=== PATIENT | male | born 1950 | race Caucasian/White ===

== ENCOUNTER 2020-07-19 09:52 | Day surgery (SDC) | payer MEDICARE, SELFPAY ==
--- NOTE | 2020-07-18 09:33 | P.CONAN_ITS ---
Documented by User: Racquel Love 07/18/20 09:33 HPI - Anesthesia Eval Consult details Narrative: 70yo M for Colonoscopy [facility] Past Medical History Medical History BPH (benign prostatic hyperplasia) HTN (hypertension) Surgical History Surgical History History of transurethral resection of prostate Hx of hernia repair Social History Social History Patient Tobacco Use Status: Never used Tobacco Use of substances other than those prescribed or required for medical reasons: No Have you been hit, kicked, punched, or otherwise hurt by someone within the past year? If so, by whom?: No Are you DNR?: No Advance Directives: No Advance Directives Information Provided: No Advance Directives on File: No Meds Allergies Allergy/AdvReac Type Severity Reaction Status Date / Time No Known Allergies Allergy Verified 07/14/20 10:46 Home Medications Medication Instructions Recorded Confirmed Last Taken Type acetaminophen [Tylenol] 650 mg PO Q6H PRN 07/14/20 07/14/20 Unknown History aspirin [Aspir-81] 81 mg PO DAILY 07/14/20 07/14/20 07/09/20 History omega-3 fatty acids [Fish Oil] 1,000 mg PO DAILY 07/14/20 07/14/20 07/09/20 History Exam Exam Date and Time: July 18, 2020 0933 Assessment and Plan Assessment Anesthesia Assessment: Chart Reviewed Documented by User: Alexandria Cunningham 07/19/20 11:37 [facility] Past Medical History Medical History BPH (benign prostatic hyperplasia) HTN (hypertension) Surgical History Surgical History History of transurethral resection of prostate Hx of hernia repair Social History Social History (Reviewed 06/08/21 @ 11:35 by Alexandria Bello Patient Tobacco Use Status: Never used Tobacco Use of substances other than those prescribed or required for medical reasons: No Have you been hit, kicked, punched, or otherwise hurt by someone within the past year? If so, by whom?: No Are you DNR?: No Advance Directives: No Advance Directives Information Provided: No Advance Directives on File: No Meds Allergies Allergy/AdvReac Type Severity Reaction Status Date / Time No Known Allergies Allergy Verified 07/14/20 10:46 Home Medications Medication Instructions Recorded Confirmed Last Taken Type acetaminophen [Tylenol] 650 mg PO Q6H PRN 07/14/20 07/14/20 Unknown History aspirin [Aspir-81] 81 mg PO DAILY 07/14/20 07/14/20 07/09/20 History omega-3 fatty acids [Fish Oil] 1,000 mg PO DAILY 07/14/20 07/14/20 07/09/20 History Exam Airway Mallampati Class: II TM Dist: >3cm Neck ROM: Full Loose/Missing/Broken Teeth: No Heart: RRR Lungs: CTA Assessment and Plan Assessment Anesthesia Assessment: Anesthesia Plan Discussed and Chart Reviewed Final Anesthetic Review NPO: Yes ASA Class: II Final Preanesthetic Review: Meds/Allgs Chart Reviewed, Consent Obtained/Reviewed and Anes Risks/Benef Reviewed Patient Risk: Low Anesthetic Plan Anesthetic Plan: MAC: Disposition: Standard PACU
[2020-07-19 07:04] VITALS: BMI 24.8
[2020-07-19 10:03] VITALS: BP 152/83; PULSE 69; RESP 18; TEMP 36.7; O2SAT 98
[2020-07-19] MEDS: Lactated Ringers 1,000 ML 100 ML IVCONT (10:18)
--- NOTE | 2020-07-19 11:21 | MHC.SHP ---
Pre-Procedural Eval Section B Chief Complaint: Fhx of colon poylps Details of Present Illness: see H&P, no changes Relevant Family History (Specify if Yes): Yes Relevant Social History: None Present Medications: see Short Stay Collaborative assessment Medical History: No relevant PMH History of Previous Operations: No relevant previous surgery Allergies: Allergies Allergy/AdvReac Type Severity Reaction Status Date / Time No Known Allergies Allergy Verified 07/14/20 10:46 Review of Systems Sugical H&P ROS: Negative: Constitution, Cardiovascular, Respiratory, Neurological, Psychiatric, Hem-Onc, Allergic/Immunologic, Gastrointestinal, Genitourinary, Musculoskeletal, Integumentary, Endocrine and Eyes/Ears/Nose/Throat Exam Surgical H&P Exam: Normal: HEENT, Normal: Heart, Normal: Lungs, Normal: Extremities, Normal: Abdomen, Normal: Skin and Normal: Neurological Plan Diagnosis/Plan: Unchanged I have reviewed the history and physical and performed a pertinent physical examination on my patient. No changes have occurred unless specified.
[2020-07-19 11:57] VITALS: BP 107/65; PULSE 55; RESP 18; TEMP 36.2; O2SAT 98
--- NOTE | 2020-07-19 11:57 | PM.OP ---
Brief Operative Note Date of Service: 07/19/20 Pre-op diagnosis: screening Post-op diagnosis: same (colon polyps) Procedure: colonoscopy Surgeon: Dwayne Toledo Anesthesia: MAC Was an Director Operations Broadcast used for this Procedure?: No Estimated blood loss (mL): 0 Pathology: other (polyps x3) Condition: stable Disposition: PACU
[2020-07-19 12:20] VITALS: BP 131/74; PULSE 65; RESP 18; TEMP 36.2; O2SAT 98
--- NOTE | 2020-07-19 22:12 | OP_ITS ---
SURGEON: Dwayne Toledo MD INDICATIONS: Family history of colon polyps and colon cancer screening. PREOPERATIVE DIAGNOSIS: POSTOPERATIVE DIAGNOSIS: PROCEDURE PERFORMED: Colonoscopy to the terminal ileum with snare polypectomy. ESTIMATED BLOOD LOSS: COMPLICATIONS: ANESTHESIA: ASSISTANTS: SPECIMENS: MEDICATIONS: Monitored anesthesia care. DESCRIPTION OF PROCEDURE: History and physical performed. The risks and benefits of the procedure were explained to the patient. Informed consent was obtained. The patient was placed in the left lateral decubitus position. A digital rectal exam was performed and was found to be normal. The Olympus pediatric video colonoscope was introduced into the rectum and advanced to the cecum without difficulty. The cecum was identified by transillumination, palpation, and identification of ileocecal valve. Examination was performed. The scope was removed. He tolerated the procedure well and was taken to recovery in stable condition. FINDINGS: The terminal ileum was examined and appeared normal. The visualized colonic mucosa was within normal limits without evidence of masses or ulcers. The quality of the prep was good. Three polyps were identified and removed with a snare. The largest measured 10 mm and was located at 80 cm. This was snared and recovered via suction. Two other less than 10 mm polyps were removed with a snare at 70 cm and at 30 cm. Retroflexed examination did show moderate-sized internal hemorrhoids. IMPRESSION: Colon polyps. RECOMMENDATION: Follow up with biopsy results. MD KRISH Ontiveros/CHELSIE / [id number]
== END 2020-07-19 12:41 | disposition home or self-care (01) ==
PROVIDERS: PCP Internal Medicine; Visit Provider Internal Medicine Gastroenterology
PROC: 0DJD8ZZ Inspection of Lower Intestinal Tract, Via Natural or Artificial Opening Endoscopic (ICD-10-PCS; CPT 45378; principal; 2020-07-19 11:00)
DX: Z12.11 Encounter for screening for malignant neoplasm of colon (principal); D12.6 Benign neoplasm of colon, unspecified; K63.5 Polyp of colon; K64.8 Other hemorrhoids; Z83.71 Family history of colonic polyps; Z79.82 Long term (current) use of aspirin
CPT/HCPCS: 45385; 88305

== ENCOUNTER → 2020-11-10 10:52 | Outpatient (REF) | payer MEDICARE, SELFPAY ==
--- NOTE | 2020-11-10 11:02 | HM_ITS ---
INDICATION: Syncope and collapse. ENROLLMENT PERIOD: 11/10/2020 to 12/10/2020. FINDINGS: In the above monitoring period, underlying rhythm was sinus. Rate was 63 beats per minute. No patient symptoms or arrhythmias recorded during this time. CONCLUSION: Study shows sinus rhythm only without any arrhythmias. MD ABBEY Rico/CHELSIE / [id number] MTDD
== END ==
LOC: HO.CARD 10:52
PROVIDERS: Visit Provider Internal Medicine
DX: R55 Syncope and collapse (principal)
CPT/HCPCS: 93270

== ENCOUNTER → 2020-12-19 13:48 | Outpatient (BNVA) | payer MEDICARE, SELFPAY | PROVIDERS: PCP Internal Medicine; Referring Provider Internal Medicine; Visit Provider Internal Medicine | DX: R55 Syncope and collapse (principal); R53.1 Weakness | CPT/HCPCS: 93005; 99202 ==

== ENCOUNTER 2021-01-09 10:10 | Outpatient (REF) | payer MEDICARE, SELFPAY ==
[2021-01-09 10:12] LABS: MANUAL DIFF FLAG NO
[2021-01-09 10:45] LABS: Basophils Absolute Auto 0.1 X10*3/uL (0.0-0.2); Basophils Percent Auto 0.9 % (0-2); Eosinophils Absolute Auto 0.2 X10*3/uL (0.0-0.4); Eosinophils Percent Auto 2.7 % (0-4); Hematocrit 43.6 % (42.0-52.0); Hemoglobin 14.3 g/dl (14.0-18.0); Imm Gran Abs Auto 0.02 X10*3/uL (0.00-0.03); Imm Gran Pct Auto 0.3 % (0.0-0.4); Lymphocytes Absolute Auto 1.7 X10*3/uL (1.2-4.9); Lymphocytes Percent Auto 29.4 % (20-40); Mean Corpuscular HGB Conc 32.8 g/dl (31.0-36.0); Mean Corpuscular Hemoglobin 31.6 pg (27.0-33.0); Mean Corpuscular Volume 96.5 fL (80.0-98.0); Mean Platelet Volume 11.6 fL (9.4-12.4); Monocytes Absolute Auto 0.7 X10*3/uL (0.1-1.2); Monocytes Percent Auto 11.5 % (2-11); Neutrophils Absolute Auto 3.2 x10*3/uL (2.0-8.3); Neutrophils Percent Auto 55.2 % (45-73); Platelet Count 300 X10*3/uL (160-400); Red Blood Count 4.52 X10*6/uL (4.60-5.80); Red Cell Distribution Width 11.6 % (11.0-16.0); White Blood Count 5.9 X10*3/uL (4.8-10.8)
[2021-01-09 10:54] LABS: Appearance Urine CLEAR; Color Urine YELLOW; Glucose Urine UA NEG (NEG); Leukocyte Esterase Urine NEG (NEG); Nitrite Urine NEG (NEG); Urine Blood NEG (NEG); Urine Ketones NEG (NEG); Urine Protein NEG (NEG-TRACE)
[2021-01-09 11:20] LABS: Alanine Aminotransferase 19 U/L (0-40); Albumin Level 4.2 g/dL (3.5-5.0); Alkaline Phosphatase 50 U/L (39-117); Anion Gap 13 (12-20); Aspartate Amino Transferase 23 U/L (5-37); Bilirubin Total 1.6 mg/dL (0.0-1.0); Blood Urea Nitrogen 13 mg/dL (9-16); Calcium 9.3 mg/dL (8.4-10.2); Carbon Dioxide 27 mmol/L (22-29); Chloride 104 mmol/L (96-108); Cholesterol 206 mg/dL; Estimated Glomerular Filt Rate > 60; Glucose Fasting 92 mg/dL (60-99); HDL Cholesterol 55 mg/dL; LDL Cholesterol Calculated 134 mg/dl; Potassium 4.5 mmol/L (3.3-5.1); Sodium 139 mmol/L (135-145); Total Protein 6.9 g/dL (6.5-8.0); Triglycerides 85 mg/dL
[2021-01-09 11:44] LABS: PSA,Total (Free>4and<10) 1.86 ng/mL (0.00-4.00)
== END 2021-01-09 10:11 | disposition home or self-care (01) ==
LOC: HO.LNP 10:10
PROVIDERS: PCP Internal Medicine; Visit Provider Internal Medicine
DX: Z12.5 Encounter for screening for malignant neoplasm of prostate (principal); E78.9 Disorder of lipoprotein metabolism, unspecified
CPT/HCPCS: 80053; 80061; 81003; 84153; 85025

== ENCOUNTER → 2021-01-26 10:18 | Outpatient (REF) | payer MEDICARE, SELFPAY ==
--- NOTE | ~2021-01-26 | US_ITS ---
EXAMINATION: US EXTRACRANIAL CAROTID DUPLEX, BILATERAL CLINICAL INFORMATION: This is a 70-year-old male with occlusion and stenosis of bilateral carotid arteries. Carotid artery disease. Syncope. COMPARISON: None TECHNIQUE: Real-time ultrasound and Doppler techniques (integrating B-mode 2-D vascular images, Doppler spectral analysis and color-flow Doppler imaging) were utilized to interrogate the extracranial carotid arteries, the vertebral arteries and proximal subclavian arteries bilaterally. The degree of stenosis is determined by criteria similar to NASCET. FINDINGS: Right Side: 1. There is minimal atherosclerotic plaque seen in the bifurcation/proximal ICA region. 2. The common carotid artery PSV proximally is 102 cm/s and distally 85 cm/s. 3. The proximal internal carotid artery velocities are 82 cm/s systolic and 29 cm/s diastolic. 4. The proximal external carotid artery PSV is 82 cm/s. 5. The vertebral artery shows antegrade flow. 6. The subclavian artery waveforms are normal. Left Side: 1. There is minimal atherosclerotic plaque seen in the bifurcation/proximal ICA region. 2. The common carotid artery PSV proximally is 86 cm/s and distally 90 cm/s. 3. The proximal internal carotid artery velocities are 68 cm/s systolic and 19 cm/s diastolic. 4. The proximal external carotid artery PSV is 74 cm/s. 5. The vertebral artery shows antegrade flow. 6. The subclavian artery waveforms are normal. US/US carotid duplex BI IMPRESSION: 1. RIGHT: Minimal, non-hemodynamically significant stenosis of the proximal right internal carotid artery corresponding to a 0-49% stenosis by velocity criteria. 2. LEFT: Minimal, non-hemodynamically significant stenosis of the proximal left internal carotid artery corresponding to a 0-49% stenosis by velocity criteria.
--- NOTE | 2021-01-26 10:21 | CA_ITS ---
Transthoracic Echocardiogram Patient (Last, First, Middle): Efren Bradshaw, Gender: Male Date of : 1950 Age: 70 Procedure Date: 01/26/2021 Procedure Type: Transthoracic Echocardiogram Location: OP Height: 180.34 cm Weight: 74.84 kg BSA: 1.94 m2 Heart Rate: bpm BP: 140 / 80 mmHg Fund Controller: NERIS Christine MD: Yuri Villavicencio MD Methane Gas Collection System Operator: Celso Chen MD Symptoms: R55 - Syncope and collapse Study Quality: Good ECG Rhythm: Sinus Conclusions: - 1. Normal LV systolic function with impaired relaxation filling pattern next 2. Within normal limits cardiac valvular Doppler 3. Normal RV systolic pressure 4. No pericardial effusion Findings Left Ventricle Normal left ventricular size, thickness, and systolic function. The visually estimated ejection fraction is between 60-65%. Spectral Doppler is indicative of an impaired relaxation filling pattern. E/E prime ratio is between 8 and 15 consistent with indeterminate filling pressures. Right Ventricle Normal right ventricular cavity size and systolic function. Atria Both atria are normal in size. There is no evidence of interatrial shunt. Aortic Valve Normal aortic valve structure and function. There is no aortic valve stenosis. There is no aortic valve regurgitation. Mitral Valve Normal mitral valve structure and function. There is trace mitral valve regurgitation. There is no mitral valve stenosis. Pulmonic Valve The pulmonic valve is likely normal. Tricuspid Valve Normal tricuspid valve structure. There is trace tricuspid valve regurgitation. The right ventricular systolic pressure is normal. The right ventricular systolic pressure is 20 mmHg. Normal right atrial pressure. There is no evidence of pulmonary hypertension. Great Vessels All visible segments of the aorta are normal in size. The pulmonary artery was not well visualized. Venous The inferior vena cava is normal in size and collapses greater than 50% with inspiration. Pericardium/Pleural There is no evidence of pericardial effusion. Prior Study Comparison No prior study available for comparison. Measurements 2D Linear Measurements IVSd: 0.97 0.6-0.9/0.6-1.0 cm LVIDd: 4.17 3.9-5.3/4.2-5.9 cm LVIDd Index: 2.15 2.4-3.2/2.2-3.1 cm/m2 LVIDs: 2.89 2.0-3.6 cm LVPWd: 0.90 0.7-1.1 cm Ao Root: 3.90 2.1-3.5 cm LA Diam: 2.90 2.7-3.8/3.0-4.0 cm LAIDs Index: 1.49 1.5-2.3 cm/m2 LV Mass: 153.64 67-162/88-224 g LV Mass Index: 79.19 43-95/49-115 g/m2 LVOT Diam: 2.30 3.0+(-)1.3 cm 2D Systolic Function EF 4C: 54.80 >55% EF 2C: 60.90 >55% EF BiP: 57.10 >55% Mitral Valve MV Pk E: 0.57 MV PK A: 0.51 MV Decel Time: 377.00 E/A: 1.10 E'Lateral: 12.00 E'Medial: 7.18 E/E' Med: 7.90 E/E' Lat: 4.70 PHT: 110.00 MVA PHT: 2.00 Decel Hudson: 1.50 Aortic Valve AoV Pk Emmanuel: 1.06 AoV Mn Emmanuel: 0.75 AoV VTI: 0.23 AoV Pk Grad: 4.00 Aov Mn Grad: 3.00 BARRY Cont.VTI: 3.71 LVOT LVOT Pk Emmanuel: 0.80 LVOT Mn Emmanuel: 0.55 LVOT VTI: 0.20 LVOT Pk Grad: 3.00 LVOT Mn Grad: 1.00 LVOT Diam: 2.30 LVOT Area: 4.15 Diastolic Function MV Pk E: 0.57 MV Pk A: 0.51 E/A: 1.10 E'Medial: 7.18 E/E' Med: 7.90 E' Laterial: 12.00 E/E' Lat: 4.70 Right Ventricle TAPSE (mm): 2.07 TVS' Emmanuel: 12.90 Tricuspid Valve TR Pk Emmanuel: 2.04 TR Pk Grad: 17.00 RA Press: 3.00 RVSP: 20.00 Great Vessels Aorta Ao Root-2D: 3.90 2.0-3.7 cm Ao Asc: 3.50 2.1-3.4 cm Ao Arch: 2.70 Updated in Other Vendor System with Status of Final Celso Chen MD electronically signed on 01/27/2021 4:00:52 PM with status of Final
== END ==
LOC: HO.CARD 10:18
PROVIDERS: PCP Internal Medicine; Visit Provider Internal Medicine
DX: R55 Syncope and collapse (principal); I65.23 Occlusion and stenosis of bilateral carotid arteries
CPT/HCPCS: 93306; 93880

== ENCOUNTER → 2021-01-31 12:21 | Outpatient (BNVA) | payer MEDICARE, SELFPAY | PROVIDERS: PCP Internal Medicine; Referring Provider Internal Medicine; Visit Provider Internal Medicine | DX: R53.1 Weakness (principal); I10 Essential (primary) hypertension; R55 Syncope and collapse | CPT/HCPCS: 99212 ==

== ENCOUNTER 2022-01-11 10:26 | Outpatient (REF) | payer MEDICARE, SELFPAY ==
[2022-01-11 10:29] LABS: MANUAL DIFF FLAG NO
[2022-01-11 10:49] LABS: Appearance Urine Clear; Color Urine Yellow; Glucose Urine UA Negative (Negative); Leukocyte Esterase Urine Negative (Negative); Nitrite Urine Negative (Negative); Urine Blood Negative (Negative); Urine Ketones Negative (Negative); Urine Protein Negative (Neg-Trace)
[2022-01-11 10:54] LABS: Bacteria Urine None Seen (None Seen); Hyaline Casts Urine 0-2 /LPF (0-2); RBC Urine 0-2 /HPF (0-2); Squamous Epithelial Cell Urine 0-2 /HPF (0-2); WBC Urine 0-5 /HPF (0-5)
[2022-01-11 10:56] LABS: Basophils Absolute Auto 0.1 X10*3/uL (0.0-0.2); Basophils Percent Auto 0.8 % (0-2); Eosinophils Absolute Auto 0.2 X10*3/uL (0.0-0.4); Eosinophils Percent Auto 2.5 % (0-4); Hematocrit 45.1 % (42.0-52.0); Imm Gran Abs Auto 0.01 X10*3/uL (0.00-0.03); Imm Gran Pct Auto 0.2 % (0.0-0.4); Lymphocytes Percent Auto 32.8 % (20-40); Mean Corpuscular HGB Conc 33.3 g/dl (31.0-36.0); Mean Corpuscular Hemoglobin 32.1 pg (27.0-33.0); Mean Corpuscular Volume 96.6 fL (80.0-98.0); Mean Platelet Volume 11.4 fL (9.4-12.4); Monocytes Absolute Auto 0.6 X10*3/uL (0.1-1.2); Monocytes Percent Auto 10.4 % (2-11); Neutrophils Absolute Auto 3.2 x10*3/uL (2.0-8.3); Neutrophils Percent Auto 53.3 % (45-73); Platelet Count 280 X10*3/uL (160-400); Red Blood Count 4.67 X10*6/uL (4.60-5.80); Red Cell Distribution Width 11.7 % (11.0-16.0)
[2022-01-11 11:31] LABS: Alanine Aminotransferase 13 U/L (0-40); Albumin Level 4.3 g/dL (3.5-5.0); Alkaline Phosphatase 48 U/L (39-117); Anion Gap 9 (12-20); Aspartate Amino Transferase 19 U/L (5-37); Bilirubin Total 1.2 mg/dL (0.0-1.0); Blood Urea Nitrogen 12 mg/dL (9-16); Calcium 9.6 mg/dL (8.4-10.2); Carbon Dioxide 30 mmol/L (22-29); Chloride 102 mmol/L (96-108); Cholesterol 214 mg/dL; Estimated Glomerular Filt Rate > 60; Glucose Fasting 89 mg/dL (60-99); HDL Cholesterol 52 mg/dL; LDL Cholesterol Calculated 141 mg/dl; PSA,Total (Free>4and<10) 1.87 ng/mL (0.00-4.00); Potassium 4.4 mmol/L (3.3-5.1); Sodium 137 mmol/L (135-145); Triglycerides 109 mg/dL
== END 2022-01-11 10:27 | disposition home or self-care (01) ==
LOC: HO.LNP 10:26
PROVIDERS: Visit Provider Internal Medicine
DX: E78.9 Disorder of lipoprotein metabolism, unspecified (principal); C61 Malignant neoplasm of prostate
CPT/HCPCS: 80053; 80061; 81001; 84153; 85025

== ENCOUNTER 2023-02-12 11:41 | Outpatient (REF) | payer MEDICARE, SELFPAY ==
[2023-02-12 11:49] LABS: MANUAL DIFF FLAG NO
[2023-02-12 12:01] LABS: Basophils Absolute Auto 0.1 X10*3/uL (0.0-0.2); Basophils Percent Auto 0.8 % (0-2); Eosinophils Absolute Auto 0.2 X10*3/uL (0.0-0.4); Eosinophils Percent Auto 3.4 % (0-4); Hematocrit 43.2 % (42.0-52.0); Hemoglobin 14.4 g/dl (14.0-18.0); Imm Gran Abs Auto 0.01 X10*3/uL (0.00-0.03); Imm Gran Pct Auto 0.2 % (0.0-0.4); Lymphocytes Absolute Auto 2.3 X10*3/uL (1.2-4.9); Lymphocytes Percent Auto 38.4 % (20-40); Mean Corpuscular HGB Conc 33.3 g/dl (31.0-36.0); Mean Corpuscular Hemoglobin 32.1 pg (27.0-33.0); Mean Corpuscular Volume 96.2 fL (80.0-98.0); Mean Platelet Volume 11.6 fL (9.4-12.4); Monocytes Absolute Auto 0.6 X10*3/uL (0.1-1.2); Monocytes Percent Auto 9.6 % (2-11); Neutrophils Absolute Auto 2.8 x10*3/uL (2.0-8.3); Neutrophils Percent Auto 47.6 % (45-73); Platelet Count 278 X10*3/uL (160-400); Red Blood Count 4.49 X10*6/uL (4.60-5.80); Red Cell Distribution Width 11.6 % (11.0-16.0); White Blood Count 5.9 X10*3/uL (4.8-10.8)
[2023-02-12 12:04] LABS: Appearance Urine Clear; Color Urine Yellow; Glucose Urine UA Negative (Negative); Leukocyte Esterase Urine Negative (Negative); Nitrite Urine Negative (Negative); PH 7.5 (5.0-9.0); Urine Blood Negative (Negative); Urine Ketones Negative (Negative); Urine Protein Negative (Neg-Trace)
[2023-02-12 12:09] LABS: Bacteria Urine None Seen (None Seen); Hyaline Casts Urine 0-2 /LPF (0-2); RBC Urine 0-2 /HPF (0-2); Squamous Epithelial Cell Urine 0-2 /HPF (0-2); WBC Urine 0-5 /HPF (0-5)
[2023-02-12 12:28] LABS: Alanine Aminotransferase 17 U/L (0-40); Albumin Level 4.3 g/dL (3.5-5.0); Alkaline Phosphatase 48 U/L (39-117); Anion Gap 10 (12-20); Aspartate Amino Transferase 23 U/L (5-37); Bilirubin Total 1.5 mg/dL (0.0-1.0); Blood Urea Nitrogen 14 mg/dL (9-16); Calcium 9.1 mg/dL (8.4-10.2); Carbon Dioxide 29 mmol/L (22-29); Chloride 105 mmol/L (96-108); Cholesterol 198 mg/dL (<200); Estimated Glomerular Filt Rate > 60; Glucose Fasting 84 mg/dL (60-99); HDL Cholesterol 57 mg/dL (>40); LDL Cholesterol Calculated 122 mg/dL (<100); Potassium 3.9 mmol/L (3.3-5.1); Sodium 140 mmol/L (135-145); Total Protein 7.2 g/dL (6.5-8.0); Triglycerides 97 mg/dL (<150)
[2023-02-12 13:18] LABS: PSA,Total (Free>4and<10) 2.19 ng/mL (0.00-4.00)
== END 2023-02-12 11:42 | disposition home or self-care (01) ==
LOC: HO.LNP 11:41
PROVIDERS: Visit Provider Internal Medicine
DX: E78.9 Disorder of lipoprotein metabolism, unspecified (principal); C61 Malignant neoplasm of prostate; Z12.5 Encounter for screening for malignant neoplasm of prostate
CPT/HCPCS: 80053; 80061; 81001; 84153; 85025

== ENCOUNTER 2023-08-20 07:55 | Day surgery (SDC) | payer MEDICARE, SELFPAY ==
[2023-08-16 14:51] VITALS: BMI 23.4
--- NOTE | 2023-08-19 10:19 | HO.ANESPROP2 ---
Documented by User: Racquel Love NP 08/19/23 10:20 HPI - Anesthesia Eval Consult details Narrative: 73yo M for Colonoscopy [facility] Active Problems Active Problems: All Active Problems Essential hypertension (Acute) Weakness (Acute) Syncope and collapse (Acute) Past Medical History Medical History BPH (benign prostatic hyperplasia) HTN (hypertension) Family History Family History Father Heart attack Mother No problems noted. Sister Type 2 diabetes mellitus Surgical History Surgical History H/O colonoscopy Hx of hernia repair History of transurethral resection of prostate Social History Social History Household Members: Spouse Alcohol intake: current Alcohol intake frequency: holidays/special occasions only Patient Tobacco Use Status: Former Tobacco user Tobacco use type: Cigarette Use of substances other than those prescribed or required for medical reasons: No Are you DNR?: No Advance Directives: No Advance Directives Information Provided: Yes Meds Allergies Allergy/AdvReac Type Severity Reaction Status Date / Time No Known Allergies Allergy Verified 01/31/21 12:29 Home Medications ?Medication ?Instructions ?Recorded ?Confirmed ?Last Taken ?Type acetaminophen 500 mg tablet 1,000 mg PO Q6H PRN Pain 08/16/23 08/16/23 Unknown History garlic 300 mg capsule 300 mg PO DAILY 08/16/23 08/16/23 Unknown History Exam Height,Weight and Vital Signs: Height 5 ft 11 in Weight 76.204 kg Assessment and Plan Assessment Anesthesia Assessment: Chart Reviewed Documented by User: Milli Jeff MD 08/20/23 09:08 PMF Past Medical History Medical History BPH (benign prostatic hyperplasia) HTN (hypertension) Family History Family History Father Heart attack Mother No problems noted. Sister Type 2 diabetes mellitus Family history of problems with anesthesia: No Surgical History Surgical History H/O colonoscopy Hx of hernia repair History of transurethral resection of prostate History of Problems with Anesthesia: No Social History Social History Household Members: Spouse Alcohol intake: current Alcohol intake frequency: holidays/special occasions only Patient Tobacco Use Status: Former Tobacco user Tobacco use type: Cigarette Use of substances other than those prescribed or required for medical reasons: No Are you DNR?: No Advance Directives: No Advance Directives Information Provided: Yes Meds Allergies Allergy/AdvReac Type Severity Reaction Status Date / Time No Known Allergies Allergy Verified 01/31/21 12:29 Home Medications ?Medication ?Instructions ?Recorded ?Confirmed ?Last Taken ?Type acetaminophen 500 mg tablet 1,000 mg PO Q6H PRN Pain 08/16/23 08/16/23 Unknown History garlic 300 mg capsule 300 mg PO DAILY 08/16/23 08/16/23 Unknown History Exam Airway Mallampati Class: II TM Dist: >3cm Neck ROM: Full Heart: rrr Lungs: cta Assessment and Plan Assessment Anesthesia Assessment: Anesthesia Plan Discussed Final Anesthetic Review Family History of Problems with Anesthesia: No History of Problems with Anesthesia: No NPO: Yes ASA Class: II Final Preanesthetic Review: No Changes in Pt Med Stat, Meds/Allgs Chart Reviewed, Consent Obtained/Reviewed and Anes Risks/Benef Reviewed Patient Risk: Low Procedure Risk: Low Anesthetic Plan Anesthetic Plan: MAC: Disposition: Standard PACU
[2023-08-20 08:39] VITALS: BMI 23.2
[2023-08-20 08:41] VITALS: BP 158/79; PULSE 63; RESP 16; TEMP 36.7; O2SAT 98
[2023-08-20] MEDS: Lactated Ringers 1,000 ML 100 ML IVCONT (08:50)
--- NOTE | 2023-08-20 09:32 | MHC.SHP ---
Pre-Procedural Eval Section A - 24 Hr Update-Section A only Date of Service: 08/20/23 The patient is an INPATIENT: No Changes since office visit: No Cold of Flu in the past 2 weeks, No New Medical Problems, No Changes in Medication and No Patient answered all questions The patient has been examined within 24 hours of the surgical procedure. The History & Physical has been completed within 30 days and I have reviewed it.: Yes Section B - Complete if H&P > 30 days Chief Complaint: screening Allergies: Allergies Allergy/AdvReac Type Severity Reaction Status Date / Time No Known Allergies Allergy Verified 01/31/21 12:29 Plan I have reviewed the history and physical and performed a pertinent physical examination on my patient. No changes have occurred unless specified. Time Spent With Patient Time: Total time managing care of this patient today ____ minutes.
[2023-08-20 10:12] VITALS: BP 106/62; PULSE 56; RESP 16; TEMP 36.3; O2SAT 97
[2023-08-20 10:27] VITALS: BP 121/69; PULSE 62; RESP 18; TEMP 36.3; O2SAT 99
--- NOTE | 2023-08-20 10:39 | PC.NURSE ---
dr issa at [facility] speaking to patient pt verbalized understanding
--- NOTE | 2023-08-20 10:48 | OP_ITS ---
DATE OF SERVICE: 08/20/2023 SURGEON: Dwayne Toledo MD INDICATIONS: Colon cancer screening and prior history of adenomatous colon polyps. PREOPERATIVE DIAGNOSIS: POSTOPERATIVE DIAGNOSIS: PROCEDURE PERFORMED: Colonoscopy to the terminal ileum with biopsy. ESTIMATED BLOOD LOSS: COMPLICATIONS: ANESTHESIA: Monitored anesthesia care. ASSISTANTS: SPECIMENS: DESCRIPTION OF PROCEDURE: A history and physical was performed. The risks and benefits of the procedure were explained to the patient and informed consent was obtained. The patient was placed in a left lateral decubitus position. A digital rectal exam was performed and was found to be normal. The Olympus pediatric video colonoscope was introduced into the rectum and advanced to the cecum. The cecum was identified by transillumination, palpation, and identification of the ileocecal valve. Examination was performed and the scope was removed. He tolerated the procedure well and was returned to recovery area in stable condition. FINDINGS: The terminal ileum was examined and appeared normal. The visualized colonic mucosa was normal. The quality of the prep was good. In the hepatic flexure, was a less than 5 mm sessile polyp. This was removed using a biopsy forceps. No other polyps were identified. Retroflexed examination showed moderate-sized internal hemorrhoids. IMPRESSION: Colon polyp. RECOMMENDATIONS: 1. Follow up biopsy results. 2. Repeat colonoscopy could be considered in 5 to 7 years depending on pathology and is optional based on age. MD KRISH Ontiveros/CHELSIE / [id number]
== END 2023-08-20 11:10 | disposition home or self-care (01) ==
PROVIDERS: PCP Internal Medicine; Visit Provider Internal Medicine Gastroenterology
PROC: 0DJD8ZZ Inspection of Lower Intestinal Tract, Via Natural or Artificial Opening Endoscopic (ICD-10-PCS; CPT 45378; principal; 2023-08-20 09:50)
DX: Z12.11 Encounter for screening for malignant neoplasm of colon (principal); D12.3 Benign neoplasm of transverse colon; K64.8 Other hemorrhoids; Z86.010 Personal history of colon polyps; I10 Essential (primary) hypertension; Z87.891 Personal history of nicotine dependence; Z79.899 Other long term (current) drug therapy
CPT/HCPCS: 45380; 88305; J2704

== ENCOUNTER 2024-02-27 10:54 | Outpatient (REF) | payer MEDICARE, SELFPAY ==
[2024-02-27 10:57] LABS: MANUAL DIFF FLAG NO
[2024-02-27 11:02] LABS: Basophils Percent Auto 0.9 % (0-2); Eosinophils Absolute Auto 0.2 X10*3/uL (0.0-0.4); Eosinophils Percent Auto 3.8 % (0-4); Hematocrit 45.2 % (42.0-52.0); Imm Gran Abs Auto 0.01 X10*3/uL (0.00-0.03); Imm Gran Pct Auto 0.2 % (0.0-0.4); Lymphocytes Absolute Auto 1.6 X10*3/uL (1.2-4.9); Lymphocytes Percent Auto 36.5 % (20-40); Mean Corpuscular HGB Conc 33.2 g/dl (31.0-36.0); Mean Corpuscular Hemoglobin 32.7 pg (27.0-33.0); Mean Corpuscular Volume 98.5 fL (80.0-98.0); Mean Platelet Volume 11.6 fL (9.4-12.4); Monocytes Absolute Auto 0.8 X10*3/uL (0.1-1.2); Monocytes Percent Auto 17.8 % (2-11); Neutrophils Absolute Auto 1.8 x10*3/uL (2.0-8.3); Neutrophils Percent Auto 40.8 % (45-73); Platelet Count 287 X10*3/uL (160-400); Red Blood Count 4.59 X10*6/uL (4.60-5.80); Red Cell Distribution Width 11.6 % (11.0-16.0); White Blood Count 4.4 X10*3/uL (4.8-10.8)
[2024-02-27 11:07] LABS: Appearance Urine Clear; Color Urine Yellow; Glucose Urine UA Negative (Negative); Leukocyte Esterase Urine Negative (Negative); Nitrite Urine Negative (Negative); PH 7.5 (5.0-9.0); Urine Blood Negative (Negative); Urine Ketones Negative (Negative); Urine Protein Negative (Neg-Trace)
[2024-02-27 11:26] LABS: Alanine Aminotransferase 27 U/L (0-40); Albumin Level 4.4 g/dL (3.5-5.0); Alkaline Phosphatase 56 U/L (39-117); Anion Gap 11 (12-20); Aspartate Amino Transferase 33 U/L (5-37); Bilirubin Total 1.5 mg/dL (0.0-1.0); Blood Urea Nitrogen 12 mg/dL (9-16); Calcium 8.8 mg/dL (8.4-10.2); Carbon Dioxide 28 mmol/L (22-29); Chloride 105 mmol/L (96-108); Cholesterol 210 mg/dL (<200); Estimated Glomerular Filt Rate > 60; Glucose Fasting 83 mg/dL (60-99); HDL Cholesterol 64 mg/dL (>40); LDL Cholesterol Calculated 133 mg/dL (<100); Sodium 140 mmol/L (135-145); Total Protein 7.5 g/dL (6.5-8.0); Triglycerides 68 mg/dL (<150)
[2024-02-27 11:32] LABS: PSA,Total (Free>4and<10) 2.46 ng/mL (0.00-4.00)
[2024-02-27 12:51] LABS: Reflex LDLD? No
== END 2024-02-27 10:55 | disposition home or self-care (01) ==
LOC: HO.LNP 10:54
PROVIDERS: Visit Provider Internal Medicine
DX: E78.9 Disorder of lipoprotein metabolism, unspecified (principal); Z12.5 Encounter for screening for malignant neoplasm of prostate
CPT/HCPCS: 80053; 80061; 81003; 84153; 85025

== ENCOUNTER 2024-04-02 11:22 | Outpatient (REF) | payer MEDICARE, SELFPAY ==
[2024-04-02 11:26] LABS: MANUAL DIFF FLAG NO
[2024-04-02 12:12] LABS: Basophils Percent Auto 0.8 % (0-2); Eosinophils Absolute Auto 0.2 X10*3/uL (0.0-0.4); Eosinophils Percent Auto 3.1 % (0-4); Imm Gran Abs Auto 0.01 X10*3/uL (0.00-0.03); Imm Gran Pct Auto 0.2 % (0.0-0.4); Lymphocytes Absolute Auto 2.1 X10*3/uL (1.2-4.9); Mean Corpuscular HGB Conc 33.3 g/dl (31.0-36.0); Mean Corpuscular Hemoglobin 32.7 pg (27.0-33.0); Mean Corpuscular Volume 98.1 fL (80.0-98.0); Mean Platelet Volume 11.2 fL (9.4-12.4); Monocytes Absolute Auto 0.6 X10*3/uL (0.1-1.2); Monocytes Percent Auto 12.1 % (2-11); Neutrophils Absolute Auto 2.2 x10*3/uL (2.0-8.3); Neutrophils Percent Auto 43.8 % (45-73); Platelet Count 273 X10*3/uL (160-400); Red Blood Count 4.28 X10*6/uL (4.60-5.80); Red Cell Distribution Width 11.9 % (11.0-16.0); White Blood Count 5.1 X10*3/uL (4.8-10.8)
--- OUTSIDE RECORDS SUMMARY | 2024-04-02 12:41 | XMS_ITS | Patient Health Record ---
Author Organization Obed Chaney MD Address [address] [place], [place] [id number] Care Team Providers Care Retort Firer Name Role Phone Obed Chaney Primary Care Provider Allergies No Known Allergies Results Component Value Reference Range Notes Complete Blood Count Auto Di ff Reviewed date:02/27/2024 05:27:21 PM Interpretation: Performing Lab:[facility], [address] [place] [phone] Notes/Report: White Blood Count 4.4 4.8-10.8 X10*3/uL Red Blood Count 4.59 4.60-5.80 X10*6/uL Hemoglobin 15.0 14.0-18.0 g/dl Hematocrit 45.2 42.0-52.0 % Mean Corpuscular Volume 98.5 80.0-98.0 fL Mean Corpuscular Hemoglobin 32.7 27.0-33.0 pg Mean Corpuscular HGB Conc 33.2 31.0-36.0 g/dl Red Cell Distribution Width 11.6 11.0-16.0 % Platelet Count 287 160-400 X10*3/uL Mean Platelet Volume 11.6 9.4-12.4 fL Neutrophils Percent Auto 40.8 45-73 % Imm Gran Pct Auto 0.2 0.0-0.4 % Lymphocytes Percent Auto 36.5 20-40 % Monocytes Percent Auto 17.8 2-11 % Eosinophils Percent Auto 3.8 0-4 % Basophils Percent Auto 0.9 0-2 % NRBC Pct Auto 0.0 0.0-0.2 /100WBC Neutrophils Absolute Auto 1.8 2.0-8.3 x10*3/u L Imm Gran Abs Auto 0.01 0.00-0.03 X10*3/uL Lymphocytes Absolute Auto 1.6 1.2-4.9 X10*3/u L Monocytes Absolute Auto 0.8 0.1-1.2 X10*3/uL Eosinophils Absolute Auto 0.2 0.0-0.4 X10*3/u L Basophils Absolute Auto 0.0 0.0-0.2 X10*3/uL NRBC Abs Auto 0.000 0.0-0.012 X10*3/uL Comprehensive [place]. Panel Fa st Reviewed date:02/27/2024 05:21:04 PM Interpretation: Performing Lab:[facility], [address] [place] [phone] Notes/Report: Sodium 140 135-145 mmol/L Potassium 4.0 3.3-5.1 mmol/L Chloride 105 96-108 mmol/L Carbon Dioxide 28 22-29 mmol/L Anion Gap 11 12-20 Blood Urea Nitrogen 12 9-16 mg/dL Creatinine 1.05 0.5-1.4 mg/dL Estimated Glomerular Filt Rate > 60 Chronic Kidney Disease: Estimated GFR < 60 mL/min/1.73m2 Severe Kidney Disease: Estimated GFR < 15 mL/min/1.73m2 Glucose Fasting 83 60-99 mg/dL Calcium 8.8 8.4-10.2 mg/dL Bilirubin Total 1.5 0.0-1.0 mg/dL Aspartate Amino Transferase 33 5-37 U/L Alanine Aminotransferase 27 0-40 U/L Total Protein 7.5 6.5-8.0 g/dL Albumin Level 4.4 3.5-5.0 g/dL Alkaline Phosphatase 56 39-117 U/L Lipid Panel with Reflex Reviewed date:02/27/2024 05:17:44 PM Interpretation: Performing Lab:[facility], [address] [place] [phone] Notes/Report: Triglycerides 68 <150 mg/dL Desirable Triglyceride: less than 150 mg/dL Borderline High Triglyceride 150-199 mg/dL High Triglyceride: 200-499 mg/dL Very High Triglyceride: greater than or equal to 5OO mg/dL Cholesterol 210 <200 mg/dL Desirable Cholesterol: less than 200 mg/dL Borderline High Cholesterol: 200-239 mg/dL High Cholesterol: greater than 239 mg/dL LDL Cholesterol Calculated 133 <100 mg/dL Desirable LDL: less than 100 mg/dL Near Optimal/Above Optimal LDL: 110-129 mg/dL Borderline High LDL: 130-159 mg/dL High LDL: 160-189 mg/dL Very High LDL: greater than or equal to 190 mg/dL HDL Cholesterol 64 >40 mg/dL Desirable HDL: greater than 40 mg/dL Note: This HDL assay may give artificially low results in patients with liver disease. PSA,Total (Free>4and<10) Reviewed date:02/27/2024 05:15:32 PM Interpretation: Performing Lab:[address] [phone] Notes/Report: PSA,Total (Free>4and<10) 2.46 0.00-4.00 ng/mL A Free PSA was not performed: The percentage of Free PSA can be used to enhance the differentiation of prostate cancer from benign prostatic disease in subjects whose PSA levels are between 4.0 and 10.0 ng/mL. For subjects whose PSA levels are below 4.0 or above 10.0 ng/mL, the risk of prostate cancer is determined on the basis of the PSA alone. Therefore the % Free PSA is recommended only for those subjects whose PSA levels are between 4.0 and 10.0 ng/mL. PSA methodology: Lam Alinity i Chemiluminescent Microparticle Immunoassay (CMIA) Complete Blood Count Auto Di ff (Not yet reviewed by provider) Interpretation: Performing Lab:[facility], [address] [place] [phone] Notes/Report: White Blood Count 5.1 4.8-10.8 X10*3/uL [...] X10*3/uL NRBC Abs Auto 0.000 0.0-0.012 X10*3/uL Pathology Reviewed date:08/21/2023 08:04:51 PM Interpretation: Performing Lab:[facility], [address] [place] [phone] Notes/Report: Name: SonamichelleEfren sims Age/Sex: 73/M : 1950 Unit#: [id number] Attend Dr: Dwayne Toledo MD Re08/20/23 Status: [facility] Location: [facility] Disch: SPEC : [id number] RECD: 08/20/23 STATUS: AILYN HSIEH NUM: [id number] STER[place]ING: 08/20/[address] [facility] [address]: Dwayne Toledo MD ENTERED: 08/20/23 SP TYPE: Surgical OTHR DR: Obed Chaney MD ORDERED: HE Stain/3, Gross Micro L4 Diagnosis Colon, hepatic flexure, polypectomy: Tubular adenoma; negative for high-grade dysplasia or carcinoma. Clinical History Pre-Op Dx: Screening Post-Op Dx: Colon polyp Microscopic Description Microscopic sections reviewed. Material Received Hepatic flexure polyp Gross Description Received in formalin labeled polyp @ hepatic flexure are 2 wade 3 mm soft tissue fragments, totally submitted in cassette A1. Copies To: Obed Chaney MD [facility] [address] [place] [address] [address] [place] [address] Dwayne Toledo MD [facility] [address] [place] [address] [address] [place] [address] Signed (signature on file) Diego Godoy MD 08/21/23 1736 END OF REPORT CHRIS CC w/rflx Micro + Cult Reviewed date:02/27/2024 05:20:41 PM Interpretation: Performing Lab:[facility], [address] [facility], [place] [address] Notes/Report: [id number] Urine, Clean Catch Color Urine Yellow Appearance Urine Clear PH 7.5 5.0-9.0 Glucose Urine UA Negative Negative mg/dL Urine Blood Negative Negative Specific [place] - Urine 1.010 1.005-1.025 Urine Protein Negative Neg-Trace mg/dL Urine Ketones Negative Negative mg/dL Nitrite Urine Negative Negative Leukocyte Esterase Urine Negative Negative Reason For Referral No Information Medications Medication SIG (Take, Route, Frequency, Duration) Notes Start Date End Date Status Sildenafil Citrate 100 MG 1 /2 tablet as needed Orally Once a day for 30 day(s) 04/25/2023 Not-Taking Immunizations Vaccine Route Administration Date Status Comme nts Shingles IM Intramuscular 09/27/2011 Administered Flu Vaccine IM Intramuscular 10/28/2012 Administered Fluarix Quadrivalent IM Intramuscular 10/13/2013 Administe red Fluarix Quadrivalent IM Intramuscular 11/11/2014 Administe red Fluarix Quadrivalent IM Intramuscular 10/13/2015 Administe red PPSV23 (Pnemovax) IM Intramuscular 10/18/2015 Administered Fluarix Quadrivalent IM Intramuscular 10/16/2016 Administe red Prevnar 13 IM Intramuscular 10/25/2016 Administered Fluarix Quadrivalent IM Intramuscular 10/28/2017 Administe red Shingrix IM Intramuscular 12/03/2017 Administered TDaP IM Intramuscular 12/17/2017 Administered [facility] Shingrix IM Intramuscular 02/25/2018 Administered Fluarix Quadrivalent IM Intramuscular 10/27/2018 Administe red Influenza High Dose IM Intramuscular 10/28/2019 Administer ed SARS-COV-2 Pfizer Unknown 04/12/2020 Administered SARS-COV-2 Pfizer Unknown 05/03/2020 Administered SARS-COV-2 Pfizer Unknown 11/07/2020 Administered [place] [place] Influenza High Dose IM Intramuscular 11/24/2020 Administer ed SARS-COV-2 Pfizer Unknown 05/22/2021 Administered Influenza High Dose IM Intramuscular 12/08/2021 Administer ed Influenza High Dose IM Intramuscular 12/25/2022 Administer ed Influenza High Dose IM Intramuscular 12/30/2023 Administer ed Flu Vaccine Unknown 10/13/2013 Pending Social History Tobacco Use: Social History Observation [...] Problem Status W/U Status Risk Notes Problem 40041813 Anxiety (F41.9) Active confirmed Problem 0743080 Primary insomnia (F51.01) Active confirmed Problem 723063130 Prostate cancer (C61) Active confirmed Problem Elevated PSA (954258697) Elevated PSA (R97.2) Active confirmed Problem 65928011 [place]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 confirmed Problem 051410853 Erectile dysfunction, unspecified erectile dysfunction type (N52.9) Active confirmed Problem 61065734 Monocytosis (D72.821) Active confirmed Problem 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) Borderline high cholesterol (E78.9) Active confirmed Problem 926217631 Labile essential hypertension (I10) Active confirmed Vital Signs Blood pressure diastolic 80 mm Hg 03/05/2024 michael ght is down 5 pounds since 04-25-23 Height 70 in 03/05/2024 weight is down 5 pounds since 04-25-23 Blood pressure systolic 152 mm Hg 03/05/2024 weig ht is down 5 pounds since 04-25-23 Weight 168 lbs 03/05/2024 weight is down 5 pounds since 04-25-23 BMI 24.1 kg/m2 03/05/2024 weight is down 5 pounds since 04-25-23 Procedures Procedure Date Ordered Date Performed Result Body Sit e Colonoscopy, Screening 08/20/2023 08/20/2023 repeat 5-7 ye ars Encounters Encounter Location Date Provider Diagnosis Obed Chaney MD [address] [place] [id number] 12/30/2023 Obed Chaney Encounter for immunization Z23 Obed Chaney MD [address] [place] [id number] 02/27/2024 Obed Chaney Borderline high cholesterol E78.9 Obed Chaney MD [address] [place] [id number] 04/02/2024 Obed Chaney Monocytosis D72.821 Obed Chaney MD [address] [place] [id number] 04/25/2023 Obed Chaney Tailor's bunion of left foot M21.622 and Erectile dysfunction, unspecified erectile dysfunction type N52.9 Obed Chaney MD [address] [place] [id number] 03/05/2024 Obed Chaney Monocytosis D72.821 ; Prostate cancer C61 and Labile essential hypertension I10 Assessments Encounter Date Diagnosis (ICD Code) Assessment Notes Treatment Notes Treatment Clinical Notes Section Notes 12/30/2023 Encounter for immunization (ICD-10 - Z23) 02/27/2024 Borderline high cholesterol (ICD-10 - E78.9) 04/02/2024 Monocytosis (ICD-10 - D72.821) 04/25/2023 Tailor's bunion of left foot (ICD-10 - M21.622) needs referral to podiatry dr ronel [facility] DO[facility] NOT TAKE REFERRALS FROM OTHER S . I GAVE PATIENT THE ADDRESS AND PHONE TO CALL AND SCHEDULE HIS APPT 04/25/2023 Erectile dysfunction, unspecified erectile dysfunction type (ICD-10 - N52.9) patient verbalized understandong of medication and directions for use 03/05/2024 Monocytosis (ICD-10 - D72.821) 03/05/2024 Prostate cancer (ICD-10 - C61) was a small tumor that showed up at turp 03/05/2024 Labile essential hypertension (ICD-10 - I10) takes pressure at home and is always a lot better Plan Of Treatment Pending Test Test Name Order Date Electrocardiogram (EKG) 10/31/2017 Electrocardiogram (EKG) 10/13/2015 Electrocardiogram (EKG) 10/31/2018 Electrocardiogram (EKG) 10/25/2016 ECG 30 day event monitor 11/01/2020 UA ClnCatch+Micro w/rflx Cult 02/27/2024 Complete Blood Count Auto Diff 5 Next Appt Details Provider Name:Obed Gonzalez ier, 06/08/2024 01:45:00 PM, [address] [facility], [address], [place], [place], [phone], Provider Name:Obed Gonzalez ier, 03/02/2025 08:00:00 AM, [address] [facility], [address], [place], [place], [phone], Provider Name:Obed Gonzalez ier, 03/08/2025 01:00:00 PM, [address] [place] [address], [address], [place], [place], [phone], Insurance Providers Payer Name Payer Address Payer Phone Subscriber Number Group Number Insured Name Patient Relationship to Insured Coverage Start Date Coverage End Date MEDICARE NHIC [address] [place] [address] [id number] Efren Bradshaw Self - patient is the insured 8 [employer] [place] [place] [address] [place] [address] [id number] Efren Bradshaw Self - patient is the insured 0 Medical (General) History Medical History History ICD Code colonoscopy 2009; colonoscop y done 01/17/[address] Lazo (repeat 5 yrs.2019)08/20/23 colonoscopy repeat 5-7 years if psa remains less than 4 doesn't need to go to urology colonocopy done 2020...due 08/04 Surgical History Surgery Date(Month/Year) Cystoscopy; transurethral resection of p rostate by Dr. Heard 12/2015
--- OUTSIDE RECORDS SUMMARY | 2024-04-02 12:41 | XMS_ITS ---
Author Organization Obed Chaney MD Address [address] [place], [place] [id number] Care Team Providers Care Sourcer Name Role Phone Obed Chaney Primary Care Provider [phone] Allergies No Known Allergies REASON FOR VISIT [...] Problem Status W/U Status Risk Notes Problem 38744713 Monocytosis (D72.821) Active confirmed Problem 597758728 Labile essential hypertension (I10) Active confirmed Vital Signs Blood pressure systolic 152 mm Hg 03/05/19 25 Blood pressure diastolic 80 mm Hg 025 Height 70 in 03/05/2024 Weight 168 lbs 03/05/2024 BMI 24.1 kg/m2 03/05/2024 weight is down 5 pounds [facility] e 04-25-23 Encounters Encounter Location Date Provider Diagnosis Obed Chaney MD [address] [place] [address] Drive [address] [place] [id number] 03/05/2024 Obed Chaney Monocytosis D72.821 ; Prostate [...] home and is always a lot better Pending Test Test Name Order Date Complete Blood Count Auto Diff Next Appt Details Follow Up: 3 Months, Reason: Provider Name:Obed kelley, 06/08/2024 01:45:00 PM, [address] [place] [address], [address] [place] [address], [phone], Provider Name:Obed kelley, 03/02/2025 08:00:00 AM, [address] [place] [address], [address] [place] [address], [phone], Provider Name:Obed kelley, 03/08/2025 01:00:00 PM, [address] [place] [address], Suite [facility], [place], [place], [phone], Progress Notes * Efren BRADSHAW MDOB:[birth year] (73 yo M)Acc No.[id number]:03/05/2024 Patient:?Efren BRADSHAW Provider:?Obed Chaney MD :1950???Age:73 Y???Sex:Male Jeramy e:03/05/2024 Address:[address] [place] [address], [phone] Subjective: * Chief Complaints: * ???Comp visitC/o right shoul nusrat pain at night x 2 months * HPI: ???Depression Screening:?PHQ-9?Little interest or pleasure in doing things?Not at all,?Feeling down, depressed, or hopeless?Not at all,?Trouble falling or staying asleep, or sleeping too much?Not at all,?Feeling tired or having little energy?Not at all,?Poor appetite or overeating?Not at all,?Feeling bad about yourself or that you are a failure, or have let yourself or your family down?Not at all,?Trouble concentrating on things, such as reading the newspaper or watching television?Not at all,?Moving or speaking so slowly that other people could have noticed; or the opposite, being so fidgety or restless that you have been moving around a lot more than usual?Not at all,?Thoughts that you would be better off or of hurting yourself in some way?Not at all,?Total Score?0.? 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 ???Communication Needs:?Communication Needs?Does the patient have a hearing impairment?No,?Does the patient have a vision impairment??Yes,?If yes, what is the vision impairment??Glasses,?Does the patient have a cognition impairment??No.?Fall Risk:?History?Have you had any falls with injury in the past year??No,?Have you had two or more falls in the past year??No.?SDOH Questions:?SDOH Questions?In the past year have you been worried about losing housing??No,?In the past year have you or any family members you live with been unable to get any of the following when it was really needed? Check all that apply:?None.? * ROS:?General/Constitutional:?Change in appetite?denies.?Chills?denies.?Fever?denies.?Ophthalmologic:?Blurred vision?denies.?Discharge?denies.?Pain?denies.?ENT:?Decreased hearing?denies.?Sore throat?denies.?Swollen glands?denies.?Endocrine:?Cold intolerance?denies.?Excessive thirst?denies.?Heat intolerance?denies.?Weight loss?denies.?Respiratory:?Cough?denies.?Shortness of breath at rest?denies.?Shortness of breath with exertion?denies.?Wheezing?denies.?Cardiovascular:?Chest pain at rest?denies.?Chest pain with exertion?denies.?Irregular heartbeat?denies.?Shortness of breath?denies.?Gastrointestinal:?Abdominal pain?denies.?Change in bowel habits?denies.?Diarrhea?denies.?Nausea?denies.?Rectal bleeding?denies.?Vomiting?denies .?Genitourinary:?Blood in urine?denies.?Difficulty urinating?denies.?Frequent urination?denies.?Musculoskeletal:?Painful joints?denies.?Weakness?denies.?Skin:?Dry skin?denies.?Itching?denies.?Denies?Mole(s),? changes in moles, new moles or any lesions of concern.?Denies?Photosensitivity.?Rash?denies.?Neurologic:?Dizziness?denies.?Fainting?denies.?Headache?denies.? * Medical History:? * Surgical History:? * Hospitalization/Major Diagno stic Procedure:? * Family History:?Father: dece ased 57 yrs.?Mother: 74 yrs.?1 brother(s) , 3 sister(s) . 2 son(s) . .? Mother-Leukemia Father-[place] 1 brother 71 tree accident, No pertinent family medical history, Denies mental health/substance abuse family history, Denies mental health/substance abuse family history, Denies mental health/substance abuse family history, No pertinent family medical history. * Social History:?Tobacco Use:?Tobacco Use/Smoking?Patient is a?former smoker,?How long has it been since you last smoked??> 10 years,?Additional Findings: Tobacco Non-User?Former smoker, currently using no form of tobacco.?Drugs/Alcohol:?Alcohol Screen?Did you have a drink containing alcohol in the past year??Yes,?How often did you have a drink containing alcohol in the past year??4 or more times a week (4 points),?How many drinks did you have on a typical day when you were drinking in the past year??1 or 2 drinks (0 point),?How often did you have 6 or more drinks on one occasion in the past year??Never (0 point),?Points?4,?Interpretation?Positive.?Miscellaneous:?Caffeine: yes, frequency:, 2-3 cups per day. Children: yes. Community involvements: no. Exercise: yes, walks daily for 1 hour. Housing: owning. Living with: spouse. Marital status: . Occupation: works full-time. Pets: none. Travel outside of the [place]: no. * Medications:?Not-Taking/PRNS ildenafil Citrate 100 MG Tablet 1 /2 tablet as needed Orally Once a day Medication List reviewed and reconciled with the patientNot-Taking/PRN Sildenafil Citrate 100 MG Tablet 1 /2 tablet as needed Orally Once a day Medication List reviewed and reconciled with the patient * Allergies:?N.K.D.A.yes[Aller gies Verified] Objective: * Vitals:?Ht: 70, Wt: 168, BMI :24.1, BP:152/80, Repeat BP:150/90, Wt-k.2. weight is down? 5 pounds since 04-25-23. * ???Past Orders: ???Lab:Comprehensive Diana. P thom Fast (Order Date - 02/27/2024) (Collection Date & Time - 02/27/2024 07:45 AM) ? Value Reference Range ?Sodium 140 135-145 - mmo l/L ?Bilirubin Total 1.5 H 0.0- 1.0 - mg/dL ?Aspartate Amino Transferase 33 5-37 - U/L ?Alanine Aminotransferase 27 0-40 - U/L ?Total Protein 7.5 6.5-8. 0 - g/dL ?Albumin Level 4.4 3.5-5. 0 - g/dL ?Alkaline Phosphatase 56 39-117 - U/L ?Potassium 4.0 3.3-5.1 - mmol/L ?Chloride 105 96-108 - mm ol/L ?Carbon Dioxide 28 22-29 - mmol/L ?Anion Gap 11 L 12-20 - ?Blood Urea Nitrogen 12 9-16 - mg/dL ?Creatinine 1.05 0.5-1.4 - mg/dL ?Estimated Glomerular Filt Rate > 60 - ?Glucose Fasting 83 60-9 9 - mg/dL ?Calcium 8.8 8.4-10.2 - m g/dL ???Lab:Lipid Panel with Refl ex (Order Date - 02/27/2024) (Collection Date & Time - 02/27/2024 07:45 AM) ? Value Reference Range ?Triglycerides 68 <150 - mg/dL ?Cholesterol 210 H <200 - m g/dL ?LDL Cholesterol Calculated 133 H <100 - mg/dL ?HDL Cholesterol 64 >40 - mg/dL ???Lab:PSA,Total (Free>4and< 10) (Order Date - 02/27/2024) (Collection Date & Time - 02/27/2024 07:45 AM) ? Value Reference Range ?PSA,Total (Free>4and<10) 2.46 0.00-4.00 - ng/mL ???Lab:UA CC w/rflx Micro + Cult (Order Date - 02/27/2024) (Collection Date & Time - 02/27/2024 07:45 AM) ? Value Reference Range ?Color Urine Yellow - ?Appearance Urine Clear - ?PH 7.5 5.0-9.0 - ?Glucose Urine UA Negative Neg ative - mg/dL ?Urine Blood Negative Negative - ?Specific [place] - Urine 1.010 1.005-1.025 - ?Urine Protein Negative Neg-Tr da - mg/dL ?Urine Ketones Negative Negati ve - mg/dL ?Nitrite Urine Negative Negati ve - ?Leukocyte Esterase Urine Negative Negative - ???Lab:Complete Blood Count Auto Diff (Order Date - 02/27/2024) (Collection Date & Time - 02/27/2024 07:45 AM) ? Value Reference Range ?White Blood Count 4.4 L 4. 8-10.8 - X10*3/uL ?Red Blood Count 4.59 L 4.60 -5.80 - X10*6/uL ?Hemoglobin 15.0 14.0-18.0 - g/dl ?Hematocrit 45.2 42.0-52.0 - % ?Mean Corpuscular Volume 98.5 H 80.0-98.0 - fL ?Mean Corpuscular Hemoglobin 32.7 27.0-33.0 - pg ?Mean Corpuscular HGB Conc 33.2 31.0-36.0 - g/dl ?Red Cell Distribution Width 11.6 11.0-16.0 - % ?Platelet Count 287 160-4 00 - X10*3/uL ?Mean Platelet Volume 11.6 9.4-12.4 - fL ?Neutrophils Percent Auto 40.8 L 45-73 - % ?Imm Gran Pct Auto 0.2 0. 0-0.4 - % ?Lymphocytes Percent Auto 36.5 20-40 - % ?Monocytes Percent Auto 17.8 H 2-11 - % ?Eosinophils Percent Auto 3.8 0-4 - % ?Basophils Percent Auto 0.9 0-2 - % ?NRBC Pct Auto 0.0 0.0-0. 2 - /100WBC ?Neutrophils Absolute Auto 1.8 L 2.0-8.3 - x10*3/uL ?Imm Gran Abs Auto 0.01 0. 00-0.03 - X10*3/uL ?Lymphocytes Absolute Auto 1.6 1.2-4.9 - X10*3/uL ?Monocytes Absolute Auto 0.8 0.1-1.2 - X10*3/uL ?Eosinophils Absolute Auto 0.2 0.0-0.4 - X10*3/uL ?Basophils Absolute Auto 0.0 0.0-0.2 - X10*3/uL ?NRBC Abs Auto 0.000 0.0-0. 012 - X10*3/uL * Examination: ???General Examination: ?GENERAL APPEARANCE:?well developed, well nourished, in no acute distress.?HEAD:?normocephalic, atraumatic.?EYES:?pupils equal, round, reactive to light and accommodation, sclera non-icteric.?EARS:?normal.?ORAL CAVITY:?mucosa moist.?THROAT:?clear.?NECK/THYROID:?neck supple, full range of motion, no cervical lymphadenopathy, no bruits.?SKIN:?warm and dry, no suspicious lesions.?HEART:?regular rate and rhythm, S1, S2 normal, no murmurs.?LUNGS:?clear to auscultation bilaterally.?ABDOMEN:?soft, nontender, nondistended, bowel sounds present, normal, no organomegaly , no masses palpable.?RECTAL EXAM:?normal tone, no external hemorrhoids, no masses palpable, prostate normal, stool guaiac negative.?MALE GENITOURINARY:?circumcised, no penile lesions or discharge rt testical atrophied.?EXTREMITIES:?no clubbing, cyanosis, or edema.?NEUROLOGIC:?nonfocal, motor strength normal upper and lower extremities, sensory exam intact.? Assessment: * Assessment: 1.?Monocytosis - D72.821 (Pr imary)???2.?Prostate cancer - C61???3.?Labile essential hypertension - I10??? Plan: * Treatment: 2.?Prostate cancer? Notes: was a small tumor that showed up at turp?? 3.?Labile essential hyperten jen? Notes: takes pressure at home and is always a lot better?? * Procedure Codes:? * Follow Up:?3 Months * * Sign off status: Completed true * Provider:?Obed Chaney MD Date:?0 03/05/2024 Generated for Chandrakant casillas/Maykel/Miguelinaitting on:?04/02/2024 12:40 PM EST History and Physical Notes * HPI (History [...] had two or more falls in the st year?: No Communication Needs Communication Needs Does the patient have a hearing impairment: No Does the patient have a vision impairmen t?: Yes ?If yes, what is the vision impairment?: Glasses Does the patient have a cognition impair ment?: No Examination Category Sub-Category Detail Notes Category Not es General Examination GENERAL APPEARANCE: well dev eloped, well nourished, in no acute distress HEAD: normocephalic, atrau matic EYES: pupils equal, round, reactive to light and accommodation, sclera non- icteric EARS: normal THROAT: clear NECK/THYROID: neck supple, [...]
--- OUTSIDE RECORDS SUMMARY | 2024-04-02 12:41 | XMS_ITS ---
Author Organization Obed Chaney MD Address [address] [place], [place] [phone] Care Team Providers Care Physical Science Aide Name Role Phone Obed Chaney Primary Care Provider [phone] Results Component Value Reference Range Notes Complete Blood Count Auto Di ff (Not yet reviewed by provider) Interpretation: Performing Lab:[facility], [address] [place] [phone] Notes/Report: White Blood Count 5.1 4.8-10.8 X10*3/uL [...] Location Date Provider Diagnosis Obed Chaney MD [address] [place] [phone] 04/02/2024 Obed Chaney Monocytosis D72.821 Assessments Encounter Date Diagnosis (ICD Code) Assessment Notes Treatment Notes Treatment Clinical Notes Section Notes 04/02/2024 Monocytosis (ICD-10 - D72.821) Plan Of Treatment Pending Test Test Name Order Date Complete Blood Count Auto Diff Next Appt Details Provider Name:Obde kelley, 06/08/2024 01:45:00 PM, [address] [place] [address], [address], [phone], Provider Name:Obed kelley, 03/02/2025 08:00:00 AM, [address] [place] [address], [address], [phone], Provider Name:Obed kelley, 03/08/2025 01:00:00 PM, [address] [place] [address], [address], [phone], Progress Notes * Efren BRADSHAW MDOB:[birth year] (73 yo M)Acc No.[id number]:04/02/2024 Progress Note Patient:?Efren BRADSHAW Provider:?Obed Chaney MD :1950???Age:73 Y???Sex:Male Jeramy e:04/02/2024 Address:[address] [place], [place] [phone] Subjective: * Chief Complaints: * ???1. CBC AUTO DIFF. * Medical History:? Objective: * Vitals:? Assessment: * Assessment: 1.?Monocytosis - D72.821 (Pr imary)??? Plan: * Treatment: * Procedure Codes:?77978 VENIP UNCT, ROUTINE* * * The named appointment provid er may or may not be the originator of this progress note, and it is not deemed complete until electronically signed by the appointment provider. Sign off status: Pending * Provider:?Obed Chaney MD Date:?0 04/02/2024 Generated for Chandrakant casillas/Maykle/Miguelinaitting on:?04/02/2024 12:41 PM EST
--- OUTSIDE RECORDS SUMMARY | 2024-04-02 12:42 | XMS_ITS ---
Author Organization [facility] Address [address] [place] [address] Care Team Providers Care Customer Account Representative Name Role Phone Obed Chaney MD Primary Care Provider Dwayne Miller Jr REASON FOR VISIT screening PROBLEMS Problem Type ICD Code Onset Dates Problem Status W/U Status Risk SNOMED Code Notes Problem Personal history of colonic polyps (Z86.010) Active confirmed History of polyp of colon (situation) (064322132) Encounters Encounter Location Date Provider Diagnosis [facility] Outpatient [address] [place] [phone] 08/20/2023 Dwayne Toledo Jr Colon cancer screening Z12.11 ; Personal history of colonic polyps Z86.010 and Colon polyps K63.5 ASSESSMENTS Encounter Date Diagnosis Assessment Notes Treatment Notes Treatment Clinical Notes 08/20/2023 Colon cancer screening (ICD-10 - Z12.11) 08/20/2023 Personal history of colonic polyps (ICD-10 - Z86.010) 08/20/2023 Colon polyps (ICD-10 - K63.5) PLAN OF TREATMENT No Information
--- OUTSIDE RECORDS SUMMARY | 2024-04-02 12:42 | XMS_ITS ---
Author Organization Obed Chaney MD Address [address] [place], [place] [phone] Care Team Providers Care Wafer Polisher Name Role Phone Obed Chaney Primary Care Provider Results Component Value Reference Range Notes Complete Blood Count Auto Di ff Reviewed date:02/27/2024 05:27:21 PM Interpretation: Performing Lab:[facility], [address] [place] [phone] Notes/Report: White Blood Count 4.4 4.8-10.8 X10*3/uL [...] NRBC Abs Auto 0.000 0.0-0.012 X10*3/uL Comprehensive [place]. Panel Fa st Reviewed date:02/27/2024 05:21:04 PM Interpretation: Performing Lab:[facility], [address] [place] [phone] Notes/Report: Sodium 140 135-145 mmol/L Potassium 4.0 [...] Reflex Reviewed date:02/27/2024 05:17:44 PM Interpretation: Performing Lab:[facility], [address] [place] [phone] Notes/Report: Triglycerides 68 <150 mg/dL Desirable Triglyceride: [...] (Free>4and<10) Reviewed date:02/27/2024 05:15:32 PM Interpretation: Performing Lab:[facility], [address] [place] [phone] Notes/Report: PSA,Total (Free>4and<10) 2.46 0.00-4.00 ng/mL A [...] Lam Alinity i Chemiluminescent Microparticle Immunoassay (CMIA) REASON FOR VISIT yearly fasting labs Encounters Encounter Location Date Provider Diagnosis Obed Chaney MD [address] [place] [address] [place] [phone] 02/27/2024 Obed Chaney Borderline high cholesterol E78.9 Assessments Encounter Date Diagnosis (ICD Code) Assessment Notes Treatment Notes Treatment Clinical Notes Section Notes 02/27/2024 Borderline high cholesterol (ICD-10 - E78.9) Plan Of Treatment Pending Test Test Name Order Date UA ClnCatch+Micro w/rflx Cult 02/27/2024 Next Appt Details Provider Name:Obed kelley, 06/08/2024 01:45:00 PM, [address] [place] [address], [address], [place], [place], [phone], Provider Name:Obed kelley, 03/02/2025 08:00:00 AM, [address], [address], [place], [place], [phone], Provider Name:Obed Dhilloncharles ier, 03/08/2025 01:00:00 PM, [address], [address], [place], [phone], Progress Notes * Efren BRADSHAW MDOB:[birth year] (73 yo M)Acc No.[id number]:02/27/2024 Progress Note Patient:?Efren BRADSHAW Provider:?Obed Chaney MD :1950???Age:73 Y???Sex:Male Jeramy e:02/27/2024 Address:[address] [place], [place] [phone] Subjective: * Chief Complaints: * ???1. Yearly fasting labs. * Medical History:? Objective: * Vitals:? Assessment: * Assessment: 1.?Borderline high cholester ol - E78.9 (Primary)??? Plan: * Treatment: * Procedure Codes:?33815 VENIP UNCT, ROUTINE* * * The named appointment provid er may or may not be the originator of this progress note, and it is not deemed complete until electronically signed by the appointment provider. Sign off status: Pending * Provider:?Obed Chaney MD Date:?0 02/27/2024 Generated for Chandrakant casillas/Maykel/Donniesmitting on:?04/02/2024 12:42 PM EST
--- OUTSIDE RECORDS SUMMARY | 2024-04-02 12:42 | XMS_ITS ---
Author Organization [facility] Address [address] [place] [address] Care Team Providers Care Birth Certificate Clerk Name Role Phone Obed Chaney MD Primary Care Provider Franky Toledo Jr, Dwayne Zhu REASON FOR VISIT pathology Encounters Encounter Location Date Provider Diagnosis [facility] [address] [place] [phone] 08/22/2023 Dwayne Toledo Jr PLAN OF TREATMENT No Information
--- OUTSIDE RECORDS SUMMARY | 2024-04-02 12:42 | XMS_ITS | Patient Health Record ---
Author Organization [facility] Address [address] [place] [address] Care Team Providers Care Promotional Advertising Assistant Name Role Phone Obed Chaney MD Primary Care Provider Dwayne Miller Jr Unavailable ALLERGIES No Known Allergies RESULTS Component Value Reference Range Notes Pathology Reviewed date:08/22/2023 11:51:03 AM Interpretation: Performing Lab:[facility], [address] [place] [phone] Notes/Report: REASON FOR REFERRAL No Information MEDICATIONS Medication SIG (Take, Route, Fr equency, Duration) Notes Start Date End Date Status Golytely 236 GM as directed before c olonoscopy Orally every 15 minutes for 1 day(s) 07/22/2023 Active Garlic 300 MG as directed Orally 07/22/2023 Active Tylenol as needed Active IMMUNIZATIONS Vaccine Route Administration Date Status Comme nts Influenza Unknown 12/02/2019 Administered Influenza Unknown 01/01/2023 Administered SOCIAL HISTORY Tobacco Use: Social History Observation Description Date Details (start date - stop date) Never Smoker NA - NA Sex Assigned At : Social History Observation Description Sex Assigned At Unknown Tobacco Use/Smoking Question Answer Notes Patient is a nonsmoker Alcohol Screen Question Answer Notes Did you have a drink contain ing alcohol in the past year? Yes How often did you have a dri nk containing alcohol in the past year? 2 to 3 times a week (3 points) How often did you have 6 or more drinks on one occasion in the past year? Never (0 point) Points 3 Interpretation Negative PROBLEMS Problem Type ICD Code Onset Dates Problem Status W/U Status Risk SNOMED Code Notes Problem Family history of colonic polyps (Z83.71) Active confirmed 126593107 Problem nursing home (current) use of aspirin (Z79.82) Active confirmed 128751771725243 Problem Colon cancer screening (Z12.11) Active confirmed 927242470 Problem Rectal lump (K62.89) Active confirmed 368905543 Problem Long-term current use of high risk medication other than anticoagulant (Z79.899) Active confirmed 217251139 Problem Personal history of colonic polyps (Z86.010) Active confirmed History of polyp of colon (situation) (307326811) VITAL SIGNS Temperature 97.8 degrees Fahrenheit 07/22/2023 Blood pressure diastolic 00 mm Hg 07/22/2023 Height 71 in 07/22/2023 Blood pressure systolic 000 mm Hg 07/22/2023 Weight 168 lb 6 oz lbs 07/22/2023 BMI 23.48 kg/m2 07/22/2023 Encounters Encounter Location Date Provider Diagnosis [facility] Outpatient [address] [place] [phone] 08/20/2023 Dwayne Toledo Jr Colon cancer screening Z12.11 ; Personal history of colonic polyps Z86.010 and Colon polyps K63.5 [facility] [address] [place] [phone] 07/22/2023 Dwayne Toledo Jr Colon cancer screening Z12.11 ; Rectal lump K62.89 and Long-term current use of high risk medication other than anticoagulant Z79.899 [facility] [address] [place] [address] [place] [phone] 08/22/2023 Dwayne Toledo Jr ASSESSMENTS Encounter Date Diagnosis Assessment Notes Treatment Notes Treatment Clinical Notes 08/20/2023 Colon cancer screening (ICD-10 - Z12.11) 08/20/2023 Personal history of colonic polyps (ICD-10 - Z86.010) 07/22/2023 Colon cancer screening (ICD-10 - Z12.11) 07/22/2023 Rectal lump (ICD-10 - K62.89) 08/20/2023 Colon polyps (ICD-10 - K63.5) 07/22/2023 Long-term current us e of high risk medication other than anticoagulant (ICD-10 - Z79.899) PLAN OF TREATMENT Future Test Test Name Order Date COLONOSCOPY 03/02/2020 COLONOSCOPY 07/22/2023 Insurance Providers Payer Name Payer Address Payer Phone Subscriber Number Group Number Insured Name Patient Relationship to Insured Coverage Start Date Coverage End Date MEDICARE OF [place] [address] [place] [address] [phone] [id number] KATE PINO Self - patient is the insured MED[employer] ATTN CLAIMS [address] [place] [phone] [id number] KATE PINO Self - patient is the insured MEDICAL (GENERAL) HISTORY Medical History History ICD Code Hypertension, off medication BPH Colon polyps, colonoscopy 08/01, three-ye ar followup Surgical History Surgery Date(Month/Year) hernia repair 2014 TURP 2016
--- OUTSIDE RECORDS SUMMARY | 2024-04-02 12:42 | XMS_ITS ---
Author Organization [facility] Address [address] [place] [address] Care Team Providers Care Trapeze Artist Name Role Phone Obed Chaney MD Primary Care Provider Dwayne Miller Jr ALLERGIES No Known Allergies REASON FOR VISIT Patient presents today for a colon screening recall/fmly hx of colon polyps MEDICATIONS Medication SIG (Take, Route, Fr equency, Duration) Notes Start Date End Date Status Golytely 236 GM as directed before c olonoscopy Orally every 15 minutes for 1 day(s) 07/22/2023 Active Garlic 300 MG as directed Orally 07/22/2023 Active Tylenol as needed Active SOCIAL HISTORY Tobacco Use: Social History Observation [...] W/U Status Risk SNOMED Code Notes Problem Colon cancer screening (Z12.11) Active confirmed 345853394 Problem Rectal lump (K62.89) Active confirmed 746885997 Problem Long-term current use of high risk medication other than anticoagulant (Z79.899) Active confirmed 580722132 VITAL SIGNS BMI 23.48 kg/m2 07/22/2023 Blood pressure systolic 000 mm Hg 07/22/19 24 Blood pressure diastolic 00 mm Hg 024 Height 71 in 07/22/2023 Temperature 97.8 degrees Fahrenheit 07/22/19 24 Weight 168 lb 6 oz lbs 07/22/2023 Encounters Encounter Location Date Provider Diagnosis [facility] [address] [place] [address] 07/22/2023 Dwayne Toledo Jr Colon cancer screening Z12.11 ; Rectal lump K62.89 and Long-term current use of high risk medication other than anticoagulant Z79.899 ASSESSMENTS Encounter Date Diagnosis Assessment Notes Treatment Notes Treatment Clinical Notes 07/22/2023 Colon cancer screening (ICD-10 - Z12.11) 07/22/2023 Rectal lump (ICD-10 - K62.89) 07/22/2023 Long-term current us e of high risk medication other than anticoagulant (ICD-10 - Z79.899) PLAN OF TREATMENT Medication Medication Name Sig Start Date Stop Date Notes Golytely 236 GM as directed before c olonoscopy Orally every 15 minutes for 1 day(s) 07/22/2023 Future Test Test Name Order Date COLONOSCOPY 07/22/2023 Next Appt Details Follow Up: 1 Year, Reason: Progress Notes * Examination Category Sub-Category Detail Notes General Examination GENERAL APPEARANCE: in no ac enterprise distress HEAD: normocephalic EYES: sclera non-icteric NECK/THYROID: no lymphadenopathy HEART: S1, S2 normal, no mu rmurs CHEST: normal shape and exp ansion LUNGS: clear to auscultatio n bilaterally ABDOMEN: soft, nontender, non distended, bowel sounds present, no organomegaly SKIN: anicteric EXTREMITIES: no clubbing, cyanosi s, or edema PSYCH: cognitive function i ntact ORAL CAVITY: mucosa moist
--- OUTSIDE RECORDS SUMMARY | 2024-04-02 12:42 | XMS_ITS | Clinical Summary ---
Author Organization [facility] Address [address] [place] [address] Care Team Providers Care Configuration Manager Name Role Phone Unavailable Primary Care Provider Unavailabl e Social History Tobacco Use Types Packs/Day Years Used Date Smoking Tobacco: Never Assessed Sex and Gender Information Value Date Recorded Sex Assigned at Not on file Legal Sex Male 9:06 PM EST Gender Identity Not on file Sexual Orientation Not on file Plan of Treatment Health Maintenance Due Date Last Done Comments Pneumococcal Vaccine: 50+ Ye ars (1 of 1 - PCV) 05/03/2001 Zoster Vaccines (1 of 2) 05/03/2001 Abdominal Aortic Aneurysm (A AA) Screen 03/08/2023 Cholesterol Screening (Lipid Panel) 03/08/2023 Colorectal Cancer Screening: Colonoscopy 03/08/2023 Depression Screening 03/08/2023 Falls Risk Assessment 03/08/2023 Hepatitis C Screening 03/08/2023 Social Influencers of Health Screening 03/08/2023 COVID-19 Vaccine ( - 2023-2 5 season) 2023 Influenza Vaccine (#1) 2023 RSV Immunization Patients 60 + Years Old (1 - 1-dose 75+ series) 05/03/2026 DTaP,Tdap,and Td Vaccines (2 - Td or Tdap) 04/28/2032 04/28/2022 HIB Vaccines Aged Out No longer eligi ble based on patient's age to complete this topic HPV Vaccines Aged Out No longer eligi ble based on patient's age to complete this topic Hepatitis A Vaccines Aged Out No long er eligible based on patient's age to complete this topic Hepatitis B Vaccines Aged Out No long er eligible based on patient's age to complete this topic IPV Vaccines Aged Out No longer eligi ble based on patient's age to complete this topic MMR Vaccines Aged Out No longer eligi ble based on patient's age to complete this topic Meningococcal ACWY Vaccine Aged Out N o longer eligible based on patient's age to complete this topic Meningococcal B Vacine Aged Out No lo nger eligible based on patient's age to complete this topic RSV Immunization Patients Un nusrat 20 months Aged Out No longer eligible b ased on patient's age to complete this topic Varicella Vaccines Aged Out No longer eligible based on patient's age to complete this topic
== END 2024-04-02 11:23 | disposition home or self-care (01) ==
LOC: HO.LNP 11:22
PROVIDERS: Visit Provider Internal Medicine
DX: D72.821 Monocytosis (symptomatic) (principal)
CPT/HCPCS: 85025

== ENCOUNTER 2024-11-10 12:11 | Outpatient (REF) | payer MEDICARE, SELFPAY ==
--- OUTSIDE RECORDS SUMMARY | 2023-08-20 05:50 | XMS_ITS ---
Author Organization [facility] Address [address] [place] [address] Care Team Providers Care Group Controller Name Role Phone Obed Chaney MD Primary Care Provider Dwayne Miller Jr REASON FOR VISIT screening Problems Problem Type SNOMED Code ICD Code Onset Dates Problem Status W/U Status Risk Notes Problem History of polyp of colon (situation) (114308957) Personal history of colonic polyps (Z86.010) Active confirmed Encounters Encounter Location Date Provider Diagnosis [facility] [place] Outpatient [address] [place] [phone] 08/20/2023 Dwayne Toledo Jr Colon cancer screening Z12.11 ; Personal history of colonic polyps Z86.010 and Colon polyps K63.5 Assessments Encounter Date Diagnosis (ICD Code) Assessment Notes Treatment Notes Treatment Clinical Notes Section Notes 08/20/2023 Colon cancer screening (ICD-10 - Z12.11) 08/20/2023 Personal history of colonic polyps (ICD-10 - Z86.010) 08/20/2023 Colon polyps (ICD-10 - K63.5) Plan Of Treatment No Information Progress Notes * KATE PINO [birth year]OB:[birth year] (74 yo M)Acc No.[id number]:08/20/2023 COLON WITH MAC Patient: KATE HUNTER Provider: Adilson Toledo MD :1950 A ge:73 Y S ex:Male Date:08/20/2023 Address:[address] [place], [place] [id number] Pcp:Obed Chaney MD Subjective: * Chief Complaints: * 1 . Screening. * Medical History: Objective: * Vitals: Assessment: * Assessment: 1. C olon cancer screening - Z12.11 (Primary) 2 . P ersonal history of colonic polyps - Z86.010 3 . C olon polyps - K63.5 Plan: * Treatment: * Procedure Codes: G 0105 COLOREC CANCR SCR; COLNSCPY HI RISK, 54635 COLONOSCOPY AND BIOPSY, 0529F INTRVL 3+YRS PTS CLNSCP DOCD, Modifiers: 1P * Preventive Medicine: JEROME Screening: C olonoscopy W as interval between colonoscopies three years or more? Y es, W as last colonoscopy performed three or more years ago? Y es. * * The named appointment provid er may or may not be the originator of this progress note, and it is not deemed complete until electronically signed by the appointment provider. Sign off status: Pending * Provider: Adilson Toledo MD Date: 08/20/2023 Generated for Chandrakant casillas/Maykel/Omarransmitting on: 11/10/2024 01:17 PM EDT
--- OUTSIDE RECORDS SUMMARY | 2024-03-05 09:00 | XMS_ITS ---
Author Organization Obed Chaney MD Address [address] [place], [place] [id number] Care Team Providers Care District Court Administrator Name Role Phone Obed Chaney Primary Care Provider Allergies No Known Allergies REASON FOR VISIT comp visit, c/o right shoulder pain at night x 2 months Medications Medication SIG (Take, Route, Frequency, Duration) Notes Start Date End Date Status Sildenafil Citrate 100 MG 1 /2 tablet as needed Orally Once a day for 30 day(s) 04/25/2023 Not-Taking Social History Tobacco Use: Social History Observation Description Date Details (start date - stop date) Former Smoker NA - NA Tobacco Use/Smoking Question Answer Notes Patient is a former smoker How long has it been since y ou last smoked? > 10 years Additional Findings: Tobacco Non-User Fo rmer smoker, currently using no form of tobacco Alcohol Screen Question Answer Notes Did you have a drink contain ing alcohol in the past year? Yes How often did you have a dri nk containing alcohol in the past year? 4 or more times a week (4 points) How many drinks did you have on a typical day when you were drinking in the past year? 1 or 2 drinks (0 point) How often did you have 6 or more drinks on one occasion in the past year? 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) Active confirmed Problem 477869433 Labile essential hypertension (I10) Active confirmed Vital Signs Blood pressure systolic 152 mm Hg 03/05/19 25 Blood pressure diastolic 80 mm Hg 025 Height 70 in 03/05/2024 Weight 168 lbs 03/05/2024 BMI 24.1 kg/m2 03/05/2024 weight is down 5 pounds [facility] 04-25-23 Encounters Encounter Location Date Provider Diagnosis Obed Chaney MD [address] [place] [address] Drive [address] [place] [phone] 03/05/2024 Obed Chaney Monocytosis D72.821 ; Prostate cancer C61 and Labile essential hypertension I10 Assessments Encounter Date Diagnosis (ICD Code) Assessment Notes Treatment Notes Treatment Clinical Notes Section Notes 03/05/2024 Monocytosis (ICD-10 - D72.821) 03/05/2024 Prostate cancer (ICD-10 - C61) was a small tumor that showed up at turp 03/05/2024 Labile essential hypertension (ICD-10 - I10) takes pressure at home and is always a lot better Plan Of Treatment Treatment Notes Assessment Notes Prostate cancer was a small tumor th at showed up at turp Labile essential hypertension takes pres sure at home and is always a lot better Next Appt Details Follow Up: 3 Months, Reason: Provider Name:Obed kelley, 03/02/2025 08:00:00 AM, [address] [place] [address], Suite [facility], [place], [place], [phone], Provider Name:Obed kelley, 03/08/2025 01:00:00 PM, [address] [place] [address], Suite [facility], [place], [place], [phone], Progress Notes * Efren BRADSHAW MDOB:[birth year] (73 yo M)Acc No.[id number]:03/05/2024 Patient: Sophia Efren RETANA Provider: Khusih Chaney MD :1950 A ge:73 Y S ex:Male Date:03/05/2024 Address:[address] [place] [id number] Subjective: * Chief Complaints: * C omp visitC/o right shoulder pain at night x 2 months * HPI: D epression Screening: PHQ-9 L ittle interest or pleasure in doing things N ot at all, F eeling down, depressed, or hopeless N ot at all, T rouble falling or staying asleep, or sleeping too much N ot at all, F eeling tired or having little energy N ot at all, P oor appetite or overeating N ot at all, F eeling bad about yourself or that you are a failure, or have let yourself or your family down N ot at all, T rouble concentrating on things, such as reading the newspaper or watching television N ot at all, M oving or speaking so slowly that other people could have noticed; or the opposite, being so fidgety or restless that you have been moving around a lot more than usual N ot at all, T houghts that you would be better off or of hurting yourself in some way N ot at all, T otal Score 0 . 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 C ommunication Needs: Communication Needs D oes the patient have a hearing impairment N o, D oes the patient have a vision impairment? Y es, I f yes, what is the vision impairment? G lasses, D oes the patient have a cognition impairment? N o. F all Risk: History H ave you had any falls with injury in the past year? N o, H ave you had two or more falls in the past year? N o. S DUDLEY Questions: SDOH Questions I n the past year have you been worried about losing housing? N o, I n the past year have you or any family members you live with been unable to get any of the following when it was really needed? Check all that apply: N one. * ROS: G eneral/Constitutional: Change in appetite d enies. C hills d enies. F ever d enies. O phthalmologic: Blurred vision d enies. D ischarge d enies. P ain d enies. E NT: Decreased hearing d enies. S ore throat d enies.?Swollen glands d enies. E ndocrine: Cold intolerance d enies. E xcessive thirst d enies. H eat intolerance d enies. W eight loss d enies. R espiratory: Cough d enies. S hortness of breath at rest d enies. S hortness of breath with exertion d enies. W heezing d enies. C ardiovascular: Chest pain at rest d enies. C hest pain with exertion?denies. I rregular heartbeat d enies. S hortness of breath d enies. ? G astrointestinal: Abdominal pain d enies. C hange in bowel habits d enies. D iarrhea d enies. N ausea d enies. R ectal bleeding d enies. V omiting d enies . G enitourinary: Blood in urine d enies. D ifficulty urinating d enies. F requent urination d enies. M usculoskeletal: Painful joints d enies. W eakness d enies. ? S kin: Dry skin d enies. I tching d enies. D enies?Mole(s), changes in moles, new moles or any lesions of concern. D enies P hotosensitivity. R laura d enies. N eurologic: Dizziness d enies. F ainting d enies. H eadache?denies. * Medical History: * Surgical History: * Hospitalization/Major Diagno stic Procedure: * Family History: F ather: 57 yrs. M other: 74 yrs. 1 brother(s) , 3 sister(s) . 2 son(s) . . Mother-Leukemia Father-DE 1 brother 71 tree accident, No pertinent family medical history, Denies mental health/substance abuse family history, Denies mental health/substance abuse family history, Denies mental health/substance abuse family history, No pertinent family medical history. * Social History: T obacco Use: T obacco Use/Smoking P atient is a f ormer smoker, H ow long has it been since you last smoked? > 10 years, A dditional Findings: Tobacco Non-User F ormer smoker, currently using no form of tobacco. D rugs/Alcohol: A lcohol Screen D id you have a drink containing alcohol in the past year? Y es, H ow often did you have a drink containing alcohol in the past year? 4 or more times a week (4 points), H ow many drinks did you have on a typical day when you were drinking in the past year? 1 or 2 drinks (0 point), H ow often did you have 6 or more drinks on one occasion in the past year? N ever (0 point), P oints 4 , I nterpretation P ositive. M iscellaneous: C affeine: yes, frequency:, 2-3 cups per day. Children: yes. Community involvements: no. Exercise: yes, walks daily for 1 hour. Housing: owning. Living with: spouse. Marital status: . Occupation: works full-time. Pets: none. Travel outside of the [place]: no. * Medications: N ot-Taking/PRNSildenafil Citrate 100 MG Tablet 1 /2 tablet as needed Orally Once a day Medication List reviewed and reconciled with the patientNot-Taking/PRN Sildenafil Citrate 100 MG Tablet 1 /2 tablet as needed Orally Once a day Medication List reviewed and reconciled with the patient * Allergies: N .K.D.A.yes[Allergies Verified] Objective: * Vitals: H t: 70, Wt: 168, BMI:24.1, BP:152/80, Repeat BP:150/90, Wt-k.2. weight is down 5 pounds since 04-25-23. * P ast Orders: L ab:Comprehensive Dalton. Panel Fast (Order Date - 02/27/2024) (Collection Date & Time - 02/27/2024 07:45 AM) Value Reference Range Sodium 140 135-145 - mmol/L Bilirubin Total 1.5 H 0.0-1.0 - mg/dL Aspartate Amino Transferase 33 5-37 - U/L Alanine Aminotransferase 27 0-40 - U/L Total Protein 7.5 6.5-8.0 - g/dL Albumin Level 4.4 3.5-5.0 - g/dL Alkaline Phosphatase 56 39-117 - U/L Potassium 4.0 3.3-5.1 - mmol/L Chloride 105 96-108 - mmol/L Carbon Dioxide 28 22-29 - mmol/L Anion Gap 11 L 12-20 - Blood Urea Nitrogen 12 9-16 - mg/dL Creatinine 1.05 0.5-1.4 - mg/dL Estimated Glomerular Filt Rate > 60 - Glucose Fasting 83 60-99 - mg/dL Calcium 8.8 8.4-10.2 - mg/dL L ab:Lipid Panel with Reflex (Order Date - 02/27/2024) (Collection Date & Time - 02/27/2024 07:45 AM) Value Reference Range Triglycerides 68 <150 - mg/dL Cholesterol 210 H <200 - mg/dL LDL Cholesterol Calculated 133 H <100 - mg/dL HDL Cholesterol 64 >40 - mg/dL L ab:PSA,Total (Free>4and<10) (Order Date - 02/27/2024) (Collection Date & Time - 02/27/2024 07:45 AM) Value Reference Range PSA,Total (Free>4and<10) 2.46 0.00-4.00 - ng/ mL L ab:UA CC w/rflx Micro + Cult (Order Date - 02/27/2024) (Collection Date & Time - 02/27/2024 07:45 AM) Value Reference Range Color Urine Yellow - Appearance Urine Clear - PH 7.5 5.0-9.0 - Glucose Urine UA Negative Negative - mg/dL Urine Blood Negative Negative - Specific [place] - Urine 1.010 1.005-1.025 - Urine Protein Negative Neg-Trace - mg/dL Urine Ketones Negative Negative - mg/dL Nitrite Urine Negative Negative - Leukocyte Esterase Urine Negative Negative - L ab:Complete Blood Count Auto Diff (Order Date - 02/27/2024) (Collection Date & Time - 02/27/2024 07:45 AM) Value Reference Range White Blood Count 4.4 L 4.8-10.8 - X10*3/uL Red Blood Count 4.59 L 4.60-5.80 - X10*6/uL Hemoglobin 15.0 14.0-18.0 - g/dl Hematocrit 45.2 42.0-52.0 - % Mean Corpuscular Volume 98.5 H 80.0-98.0 - fL Mean Corpuscular Hemoglobin 32.7 27.0-33.0 - pg Mean Corpuscular HGB Conc 33.2 31.0-36.0 - g/ dl Red Cell Distribution Width 11.6 11.0-16.0 - % Platelet Count 287 160-400 - X10*3/uL Mean Platelet Volume 11.6 9.4-12.4 - fL Neutrophils Percent Auto 40.8 L 45-73 - % Imm Gran Pct Auto 0.2 0.0-0.4 - % Lymphocytes Percent Auto 36.5 20-40 - % Monocytes Percent Auto 17.8 H 2-11 - % Eosinophils Percent Auto 3.8 0-4 - % Basophils Percent Auto 0.9 0-2 - % NRBC Pct Auto 0.0 0.0-0.2 - /100WBC Neutrophils Absolute Auto 1.8 L 2.0-8.3 - x10* 3/uL Imm Gran Abs Auto 0.01 0.00-0.03 - X10*3/uL Lymphocytes Absolute Auto 1.6 1.2-4.9 - X10* 3/uL Monocytes Absolute Auto 0.8 0.1-1.2 - X10*3/ uL Eosinophils Absolute Auto 0.2 0.0-0.4 - X10* 3/uL Basophils Absolute Auto 0.0 0.0-0.2 - X10*3/ uL NRBC Abs Auto 0.000 0.0-0.012 - X10*3/uL * Examination: G eneral Examination: GENERAL APPEARANCE: w ell developed, well nourished, in no acute distress. HEAD: n ormocephalic, atraumatic. EYES: p upils equal, round, reactive to light and accommodation, sclera non-icteric. EARS: n ormal. ORAL CAVITY: m ucosa moist. THROAT: c lear. NECK/THYROID: n clemencia supple, full range of motion, no cervical lymphadenopathy, no bruits. SKIN: w arm and dry, no suspicious lesions. HEART: r egular rate and rhythm, S1, S2 normal, no murmurs.? LUNGS: c lear to auscultation bilaterally. ABDOMEN: s oft, nontender, nondistended, bowel sounds present, normal, no organomegaly , no masses palpable. RECTAL EXAM: n ormal tone, no external hemorrhoids, no masses palpable, prostate normal, stool guaiac negative. MALE GENITOURINARY: c ircumcised, no penile lesions or discharge rt testical atrophied. EXTREMITIES: n o clubbing, cyanosis, or edema. NEUROLOGIC: n onfocal, motor strength normal upper and lower extremities, sensory exam intact. Assessment: * Assessment: 1. M onocytosis - D72.821 (Primary) 2 . P rostate cancer - C61 ?3. L abile essential hypertension - I10 Plan: * Treatment: 2. P rostate cancer Notes: was a small tumor that showed up at turp 3. 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 Feeling down, depressed, or hopeless: No t at all Trouble falling or staying asleep, or sl eeping too much: Not at all Feeling tired or having little energy: N ot at all Poor appetite or overeating: Not at all Feeling bad about yourself o r that you are a failure, or have let yourself or your family down: Not at all Trouble concentrating on thi ngs, such as reading the newspaper or watching television: Not at all Moving or speaking so slowly that other people could have noticed; or the opposite, being so fidgety or restless that you have been moving around a lot more than usual: Not at all Thoughts that you would be b eliana off or of hurting yourself in some way: Not at all Total Score: 0 SDOH Questions SDOH Questions In the past year have you been worried about losing housing?: No In the past year have you or any family members you live with been unable to get any of the following when it was really needed? Check all that apply:: None Fall Risk History Have you had any falls with injury i n the past year?: No Have you had two or more falls in the year?: No Communication Needs Communication Needs Does the patient have a hearing impairment: No Does the patient have a vision impairmen t?: Yes If yes, what is the vision impairment?: Glasses Does the patient have a cognition impair ment?: No Examination Category Sub-Category Detail Notes Category Not es General Examination GENERAL APPEARANCE: well dev eloped, well nourished, in no acute distress HEAD: normocephalic, atrau matic EYES: pupils equal, round, reactive to light and accommodation, sclera non-icteric EARS: normal THROAT: clear NECK/THYROID: neck supple, full ra nge of motion, no cervical lymphadenopathy, no bruits HEART: regular rate and rhy thm, S1, S2 normal, no murmurs LUNGS: clear to auscultatio n bilaterally ABDOMEN: soft, nontender, non distended, bowel sounds present, normal, no organomegaly , no masses palpable NEUROLOGIC: nonfocal, motor stre ngth normal upper and lower extremities, sensory exam intact SKIN: warm and dry, no ceasar picious lesions EXTREMITIES: no clubbing, cyanosi s, or edema MALE GENITOURINARY: circumcised, no peni le lesions or discharge rt testical atrophied RECTAL EXAM: normal tone, no exte rnal hemorrhoids, no masses palpable, prostate normal, stool guaiac negative ORAL CAVITY: mucosa moist
--- OUTSIDE RECORDS SUMMARY | 2024-04-02 04:15 | XMS_ITS ---
Author Organization Obed Chaney MD Address [address] [place], [place] [id number] Care Team Providers Care Washing Machine Installer Name Role Phone Obed Chaney Primary Care Provider [phone] Results Component Value Reference Range Notes Complete Blood Count Auto Di ff Reviewed date:04/02/2024 04:58:45 PM Interpretation: Performing Lab:[facility], [address] [place] [phone] Notes/Report: White Blood Count 5.1 4.8-10.8 X10*3/uL Red Blood Count 4.28 4.60-5.80 X10*6/uL Hemoglobin 14.0 14.0-18.0 g/dl Hematocrit 42.0 42.0-52.0 % Mean Corpuscular Volume 98.1 80.0-98.0 fL Mean Corpuscular Hemoglobin 32.7 27.0-33.0 pg Mean Corpuscular HGB Conc 33.3 31.0-36.0 g/dl Red Cell Distribution Width 11.9 11.0-16.0 % Platelet Count 273 160-400 X10*3/uL Mean Platelet Volume 11.2 9.4-12.4 fL Neutrophils Percent Auto 43.8 45-73 % Imm Gran Pct Auto 0.2 0.0-0.4 % Lymphocytes Percent Auto 40.0 20-40 % Monocytes Percent Auto 12.1 2-11 % Eosinophils Percent Auto 3.1 0-4 % Basophils Percent Auto 0.8 0-2 % NRBC Pct Auto 0.0 0.0-0.2 /100WBC Neutrophils Absolute Auto 2.2 2.0-8.3 x10*3/u L Imm Gran Abs Auto 0.01 0.00-0.03 X10*3/uL Lymphocytes Absolute Auto 2.1 1.2-4.9 X10*3/u L Monocytes Absolute Auto 0.6 0.1-1.2 X10*3/uL Eosinophils Absolute Auto 0.2 0.0-0.4 X10*3/u L Basophils Absolute Auto 0.0 0.0-0.2 X10*3/uL NRBC Abs Auto 0.000 0.0-0.012 X10*3/uL REASON FOR VISIT CBC AUTO DIFF Encounters Encounter Location Date Provider Diagnosis Obed Chaney MD [address] [place] [address] [place] [phone] 04/02/2024 Obed Chaney Monocytosis D72.821 Assessments Encounter Date Diagnosis (ICD Code) Assessment Notes Treatment Notes Treatment Clinical Notes Section Notes 04/02/2024 Monocytosis (ICD-10 - D72.821) Plan Of Treatment Next Appt Details Provider Name:Obed kelley, 03/02/2025 08:00:00 AM, [address] [place] [address], Suite [facility], [place], [place], [phone], Provider Name:Obed kelley, 03/08/2025 01:00:00 PM, [address] [place] [address], Suite [facility], [place], [place], [phone], Progress Notes * Efren BRADSHAW MDOB:[birth year] (74 yo M)Acc No.[id number]:04/02/2024 Progress Note Patient: Efren HUNTER Provider: Khushi Chaney MD :1950 A ge:73 Y S ex:Male Date:04/02/2024 Address:[address] [place] [phone] Subjective: * Chief Complaints: * 1 . CBC AUTO DIFF. * Medical History: Objective: * Vitals: Assessment: * Assessment: 1. M onocytosis - D72.821 (Primary) Plan: * Treatment: * Procedure Codes: 3 6415 VENIPUNCT, ROUTINE* * * The named appointment provid er may or may not be the originator of this progress note, and it is not deemed complete until electronically signed by the appointment provider. Sign off status: Pending * Provider: Khushi Chaney MD Date: 0 04/02/2024 Generated for Chandrakant casillas/Maykel/Bev on: 0 11/10/2024 01:17 PM EDT
--- OUTSIDE RECORDS SUMMARY | 2024-06-08 09:45 | XMS_ITS ---
Author Organization Obed Chaney MD Address [address] [place] [phone] Care Team Providers Care Patient Relations Representative Name Role Phone Obed Chaney Primary Care Provider [phone] Allergies No Known Allergies REASON FOR VISIT 3 MO F/U Medications Medication SIG (Take, Route, Frequency, Duration) Notes Start Date End Date Status Sildenafil Citrate 100 MG 1 /2 tablet as needed Orally Once a day for 30 day(s) 04/25/2023 Not-Taking Problems Problem Type SNOMED Code ICD Code Onset Dates Problem Status W/U Status Risk Notes Problem Essential tremor (463682871) Essential tremor (G25.0) Active confirmed Vital Signs Blood pressure systolic 142 mm Hg 06/09/19 25 Blood pressure diastolic 80 mm Hg 025 Height 70 in 06/08/2024 Weight 172 lbs 06/08/2024 BMI 24.68 kg/m2 06/08/2024 weight is up 4 pounds since 03-05-24 Encounters Encounter Location Date Provider Diagnosis Obed Chaney MD [address] [place] [phone] 06/08/2024 Obed Chaney Labile essential hypertension I10 and Essential tremor G25.0 Assessments Encounter Date Diagnosis (ICD Code) Assessment Notes Treatment Notes Treatment Clinical Notes Section Notes 06/08/2024 Labile essential hypertension (ICD-10 - I10) not high enough to treat. will continue to observe 06/08/2024 Essential tremor (ICD-10 - G25.0) no treatment needed Plan Of Treatment Treatment Notes Assessment Notes Labile essential hypertension not high e nough to treat. will continue to observe Essential tremor no treatment needed Next Appt Details Provider Name:Obed Gonzalez ier, 03/02/2025 08:00:00 AM, [address], [address], [place], [place], [phone], Provider Name:Obed Gonzalez ier, 03/08/2025 01:00:00 PM, [address], [address], [place], [place], [phone], Progress Notes * Efren BRADSHAW MDOB:[birth year] (74 yo M)Acc No.[id number]:06/08/2024 Progress Notes Patient: Efren HUNTER Provider: Khushi Chaney MD :1950 A ge:74 Y S ex:Male Date:06/08/2024 Address:[address] [place], [place] [phone] Subjective: * Chief Complaints: * 3 MO F/U * HPI: S ymptom(s): patient is a 74 yo male here for 3 month follow up visit. * ROS: G eneral/Constitutional: Denies C hills. D enies F atigue. D enies F ever. D enies H eadache. E NT: Denies S ore throat. R espiratory: Denies C ough. D enies S hortness of breath at rest. D enies S hortness of breath with exertion. G astrointestinal: Denies D iarrhea. D enies N ausea. N eurologic: Denies B alance difficulty. D enies C oordination.?Denies D izziness. D enies G ait abnormality. D enies H eadache. D enies S eizures. A dmits T remor. * Medical History: * Surgical History: * Hospitalization/Major Diagno stic Procedure: * Medications: N ot-Taking/PRNSildenafil Citrate 100 MG Tablet 1 /2 tablet as needed Orally Once a day Medication List reviewed and reconciled with the patientNot-Taking/PRN Sildenafil Citrate 100 MG Tablet 1 /2 tablet as needed Orally Once a day Medication List reviewed and reconciled with the patient * Allergies: N .K.D.A.yes[Allergies Verified] Objective: * Vitals: H t: 70, Wt: 172, BMI:24.68, BP:142/80, Repeat BP:142/80, Wt-k.02. weight is up 4 pounds since 03-05-24. * Examination: G eneral Examination: GENERAL APPEARANCE: a lert, well hydrated, in no distress.? HEAD: n ormocephalic. SKIN: g ood turgor. HEART: r egular rate and rhythm, no murmurs, rubs, gallops.? LUNGS: n o wheezes, rales, rhonchi, good air movement, clear to auscultation bilaterally. Assessment: * Assessment: 1. L abile essential hypertension - I10 (Primary) 2 . E ssential tremor - G25.0 Plan: * Treatment: 2. E ssential tremor Notes: no treatment needed * Procedure Codes: * * Sign off status: Completed true * Provider: Khushi Chaney MD Date: 0 06/08/2024 Generated for Chandrakant casillas/Maykel/eTransmitting on: 0 11/10/2024 01:18 PM EDT History and Physical Notes * HPI (History of Present Illness) Category Sub-Category Detail Notes Category Not es Symptom(s) patient is a 74 yo male here for 3 month follow up visit Examination Category Sub-Category Detail Notes Category Not es General Examination GENERAL APPEARANCE: alert, w ell hydrated, in no distress HEAD: normocephalic HEART: regular rate and rhy thm, no murmurs, rubs, gallops LUNGS: no wheezes, rales, r honchi, good air movement, clear to auscultation bilaterally SKIN: good turgor
--- OUTSIDE RECORDS SUMMARY | 2024-07-09 05:06 | XMS_ITS ---
Author Organization Obed Chaney MD Address [address] [place] [phone] Care Team Providers Care Pen Tender Name Role Phone Obed Chaney Primary Care Provider [phone] REASON FOR VISIT ER Visit rec'd Encounters Encounter Location Date Provider Diagnosis Obed Chaney MD [facility] [address] [place] [phone] 07/09/2024 Obed Chaney Plan Of Treatment Next Appt Details Provider Name:Obed Gonzalez ier, 03/02/2025 08:00:00 AM, [address] [place] [address], Suite [facility], [place], [place], [phone], Provider Name:Obed Gonzalez ier, 03/08/2025 01:00:00 PM, [address] [place] [address], Suite [facility], [place], [place], [phone], Progress Notes * Efren BRADSHAW MDOB:[birth year] (74 yo M)Acc No.[id number]:07/09/2024 Patient: Sophia Efren RETANA :1950 A ge:74 Y S ex:Male Address:[address] [place] [phone] * true * Date: Generated for Printi ng/Faxing/eTransmitting on: 0 11/10/2024 01:17 PM EDT
--- OUTSIDE RECORDS SUMMARY | 2024-11-10 05:15 | XMS_ITS ---
Author Organization Obed Chaney MD Address [address] [place], [place] [id number] Care Team Providers Care Environmental Compliance Officer Name Role Phone Obed Chaney Primary Care Provider Allergies No Known Allergies Results Component Value Reference Range Notes UA ClnCatch+Micro w/rflx Cul t Reviewed date:11/10/2024 12:41:55 PM Interpretation: Performing Lab:[facility], [address] [place] [phone] Notes/Report: Urine, Clean Catch Color Urine Yellow Appearance Urine Clear PH 8.5 5.0-9.0 Glucose Urine UA Negative Negative mg/dL Urine Blood Trace Negative Specific [place] - Urine <= 1.005 1.005-1.025 Urine Protein Negative Neg-Trace mg/dL Urine Ketones Negative Negative mg/dL Nitrite Urine Negative Negative Leukocyte Esterase Urine Negative Negative RBC Urine 0-2 0-2 /HPF WBC Urine 0-5 0-5 /HPF Squamous Epithelial Cell Urine 0-2 0-2 /HPF Bacteria Urine None Seen None Seen Hyaline Casts Urine 0-2 0-2 /LPF Reason For Referral Reason gross hematuria Diagnosis 1 Gross hematuria (R31 .0) Referral Organization Obed Chaney MD Referring Provider First Name Obed Referring Provider Last Name Shiv Referring Provider Speciality Internal M edicine Referred Provider SAÚL LLANOS Referred Provider Specialty Urology General Notes Kristi Easton 0 11/10/2024 10:21:28 AM >called their office for an appt. Had to leave a voice message. info faJmema fay Annette 11/10/2024 11:02:35 AM > patient was called with info they are in [address] Annette 11/10/2024 11:17:34 AM > info was given to patient Referral Priority Routine Referral Appointment Date 11/12/2024 REASON FOR VISIT Had 2 episodes of blood in urine on Saturday. Now urine is clear Medications Medication SIG (Take, Route, Frequency, Duration) Notes Start Date End Date Status Sildenafil Citrate 100 MG 1 /2 tablet as needed Orally Once a day for 30 day(s) 04/25/2023 Not-Taking Immunizations Vaccine Route Administration Date Status Comme nts Influenza High Dose IM Intramuscular 11/10/2024 Administer ed Vital Signs Blood pressure systolic 140 mm Hg 11/11/19 25 Blood pressure diastolic 84 mm Hg 025 Height 70 in 11/10/2024 Weight 167 lbs 11/10/2024 BMI 23.96 kg/m2 11/10/2024 weight is down 5 pounds [facility] e 06-08-24 Encounters Encounter Location Date Provider Diagnosis Obed Chaney MD [address] [place] [address] [place] [phone] 11/10/2024 Obed Chaney Encounter for administration of vaccine Z23 and Gross hematuria R31.0 Assessments Encounter Date Diagnosis (ICD Code) Assessment Notes Treatment Notes Treatment Clinical Notes Section Notes 11/10/2024 Encounter for administration of vaccine (ICD-10 - Z23) HD flu vaccine administered 11/10/2024 Gross hematuria (ICD-10 - R31.0) needs urgent referral to dr llanos who operated on him in past Plan Of Treatment Treatment Notes Assessment Notes Encounter for administration of vaccine HD flu vaccine administered Gross hematuria needs urgent referra l to dr llanos who operated on him in past Referrals Referral Date Details 11/10/2024 11/10/2024, gross he SAÚL capps Next Appt Details Provider Name:Obed kelley, 03/02/2025 08:00:00 AM, [address] [place] [address], [address], [place], [place], [phone], Provider Name:Obed kelley, 03/08/2025 01:00:00 PM, [address] [place] [address], [address], [place], [place], [phone], Progress Notes * Efren BRADSHAW MDOB:[birth year] (74 yo M)Acc No.[id number]:11/10/2024 Patient: Efren HUNTER Provider: Khushi Chaney MD :1950 A ge:74 Y S ex:Male Date:11/10/2024 Address:[address] [place], [place] [phone] Subjective: * Chief Complaints: * 1 . Had 2 episodes of blood in urine on Saturday. Now urine is clear. * HPI: S ymptom(s): patient is a 89 yo male hhere with complaint o two episodes of blood in urine/ Has some heavy lifting last few days and had some blood in urine. in past had some little amts of blood when straining at stool. had 2 episodes of gross blood that night. * ROS: G eneral/Constitutional: Denies C hills. D enies F atigue. D enies F ever. D enies H eadache. E NT: Denies S ore throat. R espiratory: Denies C ough. D enies S hortness of breath at rest. D enies S hortness of breath with exertion. G astrointestinal: Denies D iarrhea. D enies N ausea. G enitourinary: Denies A bdominal pain/swelling. A dmits B lood in urine. D enies D ifficulty urinating. A dmits F requent urination. D enies P ain in lower back. D enies P ainful urination. * Medical History: c olonoscopy 2009; colonoscopy done 01/17/[address] Lazo (repeat 5 yrs.2019)08/20/23 colonoscopy repeat 5-7 years, If psa remains less than 4 doesn't need to go to urology, Colonocopy done 2020...due 08/04. * Medications: N ot-Taking/PRN Sildenafil Citrate 100 MG Tablet 1 /2 tablet as needed Orally Once a day , Medication List reviewed and reconciled with the patient * Allergies: N .K.D.A. Objective: * Vitals: H t: 70, Wt: 167, BMI:23.96, BP:140/84, Wt-k.75. weight is down 5 pounds since 06-08-24. * Examination: G eneral Examination: GENERAL APPEARANCE: a lert, well hydrated, in no distress.? SKIN: a bnormal small ecchymosis on left arm. HEART: r egular rate and rhythm, no murmurs, rubs, gallops.? LUNGS: n o wheezes, rales, rhonchi, good air movement, clear to auscultation bilaterally. BACK: n o costovertebral angle tenderness. Assessment: * Assessment: 1. G ross hematuria - R31.0 (Primary) 2 . E ncounter for administration of vaccine - Z23 Plan: * Treatment: 2. E ncounter for administration of vaccine Notes: HD flu vaccine administered * Immunizations: Influenza High Dose : 0.5 mL (Dose No:1) (Route: Intramuscular) given by Lindsey Briggs , Office Staff on Left Deltoid * Procedure Codes: 9 0662 FLU VACC PRSV FREE INC ANTIG, G0008 ADMN FLU VAC NO FEE SCHED SAME DAY * Preventive Medicine: Immunizations: I nfluenza H ave you had a flu shot since the most recent October 12? Y es. * * The named appointment provid er may or may not be the originator of this progress note, and it is not deemed complete until electronically signed by the appointment provider. Sign off status: Pending * Provider: Khushi Chaney MD Date: 11/10/2024 Generated for Chandrakant casillas/Maykel/Miguelinaitting on: 11/10/2024 01:17 PM EDT History and Physical Notes * HPI (History of Present Illness) Category Sub-Category Detail Notes Category Not es Symptom(s) patient is a [age] yo male hhere with complaint o two episodes of blood in urine/ Has some heavy lifting last few days and had some blood in urine. in past had some little amts of blood when straining at stool. had 2 episodes of gross blood that night Examination Category Sub-Category Detail Notes Category Not es General Examination GENERAL APPEARANCE: alert, w ell hydrated, in no distress HEART: regular rate and rhy thm, no murmurs, rubs, gallops LUNGS: no wheezes, rales, r honchi, good air movement, clear to auscultation bilaterally SKIN: abnormal small ecchy mosis on left arm BACK: no costovertebral an gle tenderness Consultation Request Notes Referral Date Referring Provider Referred Provider Not es 11/10/2024 Obed Chaney KEVIN gross hemat uria
[2024-11-10 12:18] LABS: Appearance Urine Clear; Glucose Urine UA Negative (Negative); PH 8.5 (5.0-9.0); Specific Gravity - Urine <= 1.005 (1.005-1.025); UMIC TRIGGER UACC YES
--- OUTSIDE RECORDS SUMMARY | 2024-11-10 13:17 | XMS_ITS | Clinical Summary ---
Author Organization [facility] ity Address [address] [place] [address] Care Team Providers Care Self Pay Specialist Name Role Phone Unavailable Primary Care Provider Unavailabl e Social History Tobacco Use Types Packs/Day Years Used Date Smoking Tobacco: Never Assessed Sex and Gender Information Value Date Recorded Sex Assigned at Not on file Legal Sex Male 9:06 PM EST Gender Identity Not on file Sexual Orientation Not on file Plan of Treatment Health Maintenance Due Date Last Done Comments Colorectal Cancer Screening: Colonoscopy 1950 Pneumococcal Vaccine: 50+ Ye ars (1 of 1 - PCV) 05/03/2001 Zoster Vaccines (1 of 2) 05/03/2001 Abdominal Aortic Aneurysm (A AA) Screen 03/08/2023 Cholesterol Screening (Lipid Panel) 03/08/2023 Falls Risk Assessment 03/08/2023 Hepatitis C Screening 03/08/2023 Social Influencers of Health Screening 03/08/2023 Depression Screening 02/12/2024 COVID-19 Vaccine (1 - 2023-2 5 season) 2024 Influenza Vaccine (#1) 2024 RSV Immunization Adult Patie nts (1 - 1-dose 75+ series) 05/03/2026 DTaP,Tdap,and [...] age to complete this topic Meningococcal B Vaccine Aged Out No l onger eligible based on patient's age to complete this topic RSV Immunization Patients Un nusrat 20 months Aged Out No longer eligible b ased on patient's age to complete this topic Varicella Vaccines Aged Out No longer eligible based on patient's age to complete this topic
--- OUTSIDE RECORDS SUMMARY | 2024-11-10 13:17 | XMS_ITS | Patient Health Record ---
Author Organization Obed Chaney MD Address [address] [place], [place] [id number] Care Team Providers Care Inside Trucker Name Role Phone Obed Chaney Primary Care Provider Allergies No Known Allergies Results Component Value Reference Range Notes Complete Blood Count Auto Di ff Reviewed date:02/27/2024 05:27:21 PM Interpretation: Performing Lab:[facility], [address] [place] [phone] Notes/Report: White Blood Count 4.4 4.8-10.8 X10*3/uL [...] NRBC Abs Auto 0.000 0.0-0.012 X10*3/uL Comprehensive Helm. Panel Fa st Reviewed date:02/27/2024 05:21:04 PM Interpretation: Performing Lab:[facility], [address] [place] [phone] Notes/Report: Sodium 140 135-145 mmol/L Potassium 4.0 [...] Reflex Reviewed date:02/27/2024 05:17:44 PM Interpretation: Performing Lab:[facility], [address] [place] [phone] Notes/Report: Triglycerides 68 <150 mg/dL Desirable Triglyceride: [...] (Free>4and<10) Reviewed date:02/27/2024 05:15:32 PM Interpretation: Performing Lab:[address] [phone] Notes/Report: PSA,Total (Free>4and<10) 2.46 0.00-4.00 ng/mL A [...] (CMIA) Complete Blood Count Auto Di ff Reviewed date:04/02/2024 04:58:45 PM Interpretation: Performing Lab:[facility], [address] [place] [phone] Notes/Report: White Blood Count 5.1 4.8-10.8 X10*3/uL [...] X10*3/uL NRBC Abs Auto 0.000 0.0-0.012 X10*3/uL UA ClnCatch+Micro w/rflx Cul t Reviewed date:11/10/2024 12:41:55 PM Interpretation: Performing Lab:[facility], [address] [place] [phone] Notes/Report: Urine, Clean Catch Color Urine Yellow Appearance Urine Clear PH 8.5 5.0-9.0 Glucose Urine UA Negative Negative mg/dL Urine Blood Trace Negative Specific [place] - Urine <= 1.005 1.005-1.025 Urine Protein Negative Neg-Trace mg/dL Urine Ketones Negative Negative mg/dL Nitrite Urine Negative Negative Leukocyte Esterase Urine Negative Negative RBC Urine 0-2 0-2 /HPF WBC Urine 0-5 0-5 /HPF Squamous Epithelial Cell Urine 0-2 0-2 /HPF Bacteria Urine None Seen None Seen Hyaline Casts Urine 0-2 0-2 /LPF UA CC w/rflx Micro + Cult Reviewed date:02/27/2024 05:20:41 PM Interpretation: Performing Lab:[facility], [address] [place] [phone] Notes/Report: [id number] Urine, Clean Catch Color Urine Yellow Appearance Urine Clear PH 7.5 5.0-9.0 Glucose Urine UA Negative Negative mg/dL Urine Blood Negative Negative Specific [place] - Urine 1.010 1.005-1.025 Urine Protein Negative Neg-Trace mg/dL Urine Ketones Negative Negative mg/dL Nitrite Urine Negative Negative Leukocyte Esterase Urine Negative Negative Reason For Referral Reason gross hematuria Diagnosis 1 Gross hematuria (R31 .0) Referral Organization Obed Chaney MD Referring Provider First Name Obed Referring Provider Last Name Shiv Referring Provider Speciality Internal M edicine Referred Provider SAÚL HEARD Referred Provider Specialty Urology General Notes Kristi Easton 0 11/10/2024 10:21:28 AM >called their office for an appt. Had to leave a voice message. info faxedJemma Annette 11/10/2024 11:02:35 AM > patient was called with info they are in [address] [place] Annette 11/10/2024 11:17:34 AM > info was given to patient Referral Priority Routine Referral Appointment Date 11/12/2024 Medications Medication SIG (Take, Route, Frequency, Duration) [...] Administered [facility] Sh[facility]rix IM Intramuscular 02/25/2018 Administered Fluarix Quadrivalent IM Intramuscular 10/27/2018 Admindary red Influenza High Dose IM Intramuscular 10/28/2019 Administer ed SARS-COV-2 Pfizer Unknown 04/12/2020 Administered SARS-COV-2 Pfizer Unknown 05/03/2020 Administered SARS-COV-2 Pfizer Unknown 11/07/2020 Administered Melody amanda'michelle Influenza High Dose IM Intramuscular 11/24/2020 Administer ed SARS-COV-2 Pfizer Unknown 05/22/2021 Administered Influenza High Dose IM Intramuscular 12/08/2021 Administer ed Influenza High Dose IM Intramuscular 12/25/2022 Administer ed Influenza High Dose IM Intramuscular 12/30/2023 Administer ed Influenza High Dose IM Intramuscular 11/10/2024 Administer ed Flu Vaccine Unknown 10/13/2013 Pending [...] Problem Status W/U Status Risk Notes Problem 45258968 Anxiety (F41.9) Active confirmed Problem 0147326 Primary insomnia (F51.01) Active confirmed Problem Essential tremor (875548784) Essential tremor (G25.0) Active confirmed Problem 188314129 Prostate cancer (C61) Active confirmed Problem Elevated PSA (081655725) Elevated PSA (R97.2) Active confirmed Problem 85154729 [place]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 confirmed Problem 950831383 Erectile dysfunction, unspecified erectile dysfunction type (N52.9) Active confirmed Problem 82230696 Monocytosis (D72.821) Active confirmed Problem Disorder of lipid metabolism (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) Borderline high cholesterol (E78.9) Active confirmed Problem 760432016 Labile essential hypertension (I10) Active confirmed Vital Signs Blood pressure diastolic 84 mm Hg 11/10/2024 michael ght is down 5 pounds since 06-08-24 Height 70 in 11/10/2024 weight is down 5 pounds since 06-08-24 Blood pressure systolic 140 mm Hg 11/10/2024 weig ht is down 5 pounds since 06-08-24 Weight 167 lbs 11/10/2024 weight is down 5 pounds since 06-08-24 BMI 23.96 kg/m2 11/10/2024 weight is down 5 pounds since 06-08-24 Encounters Encounter Location Date Provider Diagnosis Obed Chaney MD [address] [place] [id number] 12/30/2023 Obed Chaney Encounter for immunization Z23 Obed Chaney MD [address] [place] [id number] 02/27/2024 Obed Chaney Borderline high cholesterol E78.9 Obed Chaney MD [address] [place] [id number] 04/02/2024 Obed Chaney Monocytosis D72.821 Obed Chaney MD [address] [place] [id number] 11/10/2024 Obed Chaney Encounter for administration of vaccine Z23 and Gross hematuria R31.0 Obed Chaney MD [address] [place] [id number] 03/05/2024 Obed Chaney Monocytosis D72.821 ; Prostate cancer C61 and Labile essential hypertension I10 Obed Chaney MD [address] [place] [id number] 06/08/2024 Obed Chaney Labile essential hypertension I10 and Essential tremor G25.0 Obed Chaney MD [address] [place] [id number] 07/09/2024 Obed Chaney Assessments Encounter Date Diagnosis (ICD Code) Assessment Notes Treatment Notes Treatment Clinical Notes Section Notes 12/30/2023 Encounter for immunization (ICD-10 - Z23) 02/27/2024 Borderline high cholesterol (ICD-10 - E78.9) 04/02/2024 Monocytosis (ICD-10 - D72.821) 11/10/2024 Encounter for administration of vaccine (ICD-10 - Z23) HD flu vaccine administered 11/10/2024 Gross hematuria (ICD-10 - R31.0) needs urgent referral to dr heard who operated on him in past 03/05/2024 Monocytosis (ICD-10 - D72.821) 03/05/2024 Prostate cancer (ICD-10 - C61) was a small tumor that showed up at turp 06/08/2024 Labile essential hypertension (ICD-10 - I10) not high enough to treat. will continue to observe 06/08/2024 Essential tremor (ICD-10 - G25.0) no treatment needed 03/05/2024 Labile essential hypertension (ICD-10 - I10) takes pressure at home and is always a lot better Plan Of Treatment Pending Test Test Name Order Date Electrocardiogram (EKG) 10/13/2015 Electrocardiogram (EKG) 10/25/2016 Electrocardiogram (EKG) 10/31/2017 Electrocardiogram (EKG) 10/31/2018 ECG 30 day event monitor 11/01/2020 Next Appt Details Provider Name:Obed Gonzalez ier, 03/02/2025 08:00:00 AM, [address] [place] [address], [address], [phone], Provider Name:Obed Gonzalez ier, 03/08/2025 01:00:00 PM, [address] [place] [address], [place] [address], [place], [place], [phone], Insurance Providers Payer Name Payer Address Payer Phone Subscriber Number Group Number Insured Name Patient Relationship to Insured Coverage Start Date Coverage End Date [employer] [address] [place] [address] [id number] Efren Bradshaw Self - patient is the insured 8 [employer] [place] [address] [place] [address] [id number] Efren Bradshaw Self - patient is the insured 0 Medical (General) History Medical History History ICD Code colonoscopy 2009; colonoscop y done 01/17/[address] Lazo (repeat 5 yrs.2019)08/20/23 colonoscopy repeat 5-7 years if psa remains less than 4 doesn't need to go to urology colonocopy done 2021...due 08/04 Surgical History Surgery Date(Month/Year) Cystoscopy; transurethral resection of p rostate by Dr. Heard 12/2015
--- OUTSIDE RECORDS SUMMARY | 2024-11-10 13:17 | XMS_ITS | Patient Health Record ---
Author Organization [facility] Address [address] [place] [phone] Care Team Providers Care Shore Man Name Role Phone Obed Chaney MD Primary Care Provider Dwayne Miller Jr Unavailable Allergies No Known Allergies Reason For Referral No Information Medications Medication SIG (Take, Route, Fr equency, Duration) Notes Start Date End Date Status Golytely 236 GM as directed before c olonoscopy Orally every 15 minutes for 1 day(s) 07/22/2023 Active Garlic 300 MG as directed Orally 07/22/2023 Active Tylenol as needed Active Immunizations Vaccine Route Administration Date Status Comme nts Influenza Unknown 12/02/2019 Administered Influenza Unknown 01/01/2023 Administered Social History Tobacco Use: Social History Observation Description Date Details (start date - stop date) Never Smoker NA - NA Tobacco Use/Smoking Question [...] Never (0 point) Points 3 Interpretation Negative Section Notes: ocassional wine ocassional wine Problems Problem Type SNOMED Code ICD Code Onset Dates Problem Status W/U Status Risk Notes Problem 842678815 Colon cancer screening (Z12.11) Active confirmed Problem History of polyp of colon (situation) (943988155) Personal history of colonic polyps (Z86.010) Active confirmed Problem 529074954090792 custodial (current) use of aspirin (Z79.82) Active confirmed Problem 682803575 Family history of colonic polyps (Z83.71) Active confirmed Problem 951818488 Long-term current use of high risk medication other than anticoagulant (Z79.899) Active confirmed Problem 716243939 Rectal lump (K62.89) Active confirmed Plan Of Treatment Future Test Test Name Order Date COLONOSCOPY 03/02/2020 COLONOSCOPY 07/22/2023 Insurance Providers Payer Name Payer Address Payer Phone Subscriber Number Group Number Insured Name Patient Relationship to Insured Coverage Start Date Coverage End Date MEDICARE OF [place] [address] [facility] [place] [address] [phone] [id number] KATE PINO Self - patient is the insured [employer] ATT[employer] CLAIMS [address] [place] [address] [id number] KATE PINO Self - patient is the insured Medical (General) History Medical History History ICD Code Hypertension, off medication BPH Colon polyps, colonoscopy 08/01, three-ye ar followup Surgical History Surgery Date(Month/Year) hernia repair 2014 TURP 2016
== END 2024-11-10 12:12 | disposition home or self-care (01) ==
LOC: HO.LNP 12:11
PROVIDERS: Visit Provider Internal Medicine
DX: R31.0 Gross hematuria (principal)
CPT/HCPCS: 81001